=== PATIENT | female | born 1950 | race African-American/Black ===

== ENCOUNTER → 2017-04-24 | Outpatient (CLI) | payer MEDICARE, OTHER ==
--- NOTE | 2017-04-24 10:03 | US ---
EXAMINATION TYPE: US kidneys/renal and bladder DATE OF EXAM: 04/24/2017 COMPARISON: NONE CLINICAL HISTORY: 67-year-old female N18.9 chronic kidney disease. TECHNIQUE: Multiple sonographic images of the kidneys and bladder were obtained. FINDINGS: EXAM MEASUREMENTS: Right Kidney: 9.3 x 3.9 x 4.6 cm without hydronephrosis. Left Kidney: 9.7 x 3.6 x 4.4 cm without hydronephrosis. There is a 2.4 cm cyst in the upper pole that may have slightly eccentrically thickened wall and can be reassessed in 6 months. Partial distention of the bladder limits its evaluation. IMPRESSION: 1. No hydronephrosis. 2. A 2.4 cm lesion upper pole left kidney. A Bosniak class IIF cyst is not excluded at this time. Six -month follow-up ultrasound recommended.
== END | disposition home or self-care (01) ==
LOC: RADUSWWP 08:23
PROVIDERS: ATTEND Family Medicine
DX: N18.9 Chronic kidney disease, unspecified (principal)
CPT/HCPCS: 76770

== ENCOUNTER 2017-04-26 17:11 | Emergency (ER) | payer MEDICARE, OTHER ==
[2017-04-26 17:19] VITALS: BP 106/76; PULSE 85; RESP 18; TEMP 99.5
[2017-04-26] MEDS ORDERED: HYDROcodone/APAP 5-325MG 1 EACH TAB PO STA (17:28)
--- NOTE | 2017-04-26 17:34 | ED ---
General Adult HPI - General Chief complaint: Extremity Injury, Lower Stated complaint: left foot ankle pain Time Seen by Provider: 04/26/17 17:21 Source: patient, RN notes reviewed Mode of arrival: wheelchair Limitations: no limitations - History of Present Illness Initial comments: Patient 67-year-old female who presents emergency room today with chief complaint of increased pain to the left foot over the last 3 days. Denies any significant injury or trauma. Does admit that it started slowly began to get worse. She states worse with ambulation. States is worse when she dorsiflexes the left foot she feels pain in the midfoot area. Patient denies any other complaints or associated symptoms. States she did not take and moving for pain. Patient denies any recent fever, chills, shortness of breath, chest pain, back pain, abdominal pain, nausea or vomiting, numbness or tingling, dysuria or hematuria, constipation or diarrhea, headaches or visual changes, or any other complaints. - Related Data Home Medications Medication Instructions Recorded Confirmed Beclomethasone Dipropionate [Qvar 2 puff INHALATION BID 09/02/15 09/02/15 80 mcg/puff] Previous Rx's Medication Instructions Recorded Carvedilol [Coreg] 6.25 mg PO BID-W/MEALS #180 tab 01/04/15 Furosemide [Lasix] 40 mg PO DAILY #90 tab 01/04/15 Lisinopril [Zestril] 5 mg PO DAILY #90 tab 07/19/15 Spironolactone [Aldactone] 25 mg PO DAILY #90 tab 07/19/15 Furosemide [Lasix] 20 mg PO DAILY #20 tab 09/02/15 Allergies Allergy/AdvReac Type Severity Reaction Status Date / Time latex Allergy Dyspnea Verified 04/26/17 17:19 Penicillins Allergy Rash/Hives Verified 04/26/17 17:19 aspirin AdvReac Unknown Verified 04/26/17 17:19 salt AdvReac Swelling Uncoded 04/26/17 17:19 Review of Systems ROS Statement: Those systems with pertinent positive or pertinent negative responses have been documented in the HPI. ROS Other: All systems not noted in ROS Statement are negative. Past Medical History Past Medical History: Blood Disorder, Hypertension, Osteoarthritis (OA), Pneumonia, Renal Disease Additional Past Medical History / Comment(s): enlarged heart, sickle cell anemia. CHF,cardiomyopathy,pulmonary htn,Hepatitis History of Any Multi-Drug Resistant Organisms: None Reported Past Surgical History: No Surgical Hx Reported Past Anesthesia/Blood Transfusion Reactions: No Reported Reaction Past Psychological History: No Psychological Hx Reported Smoking Status: Former smoker Past Alcohol Use History: None Reported Past Drug Use History: None Reported - Past Family History Mother Family Medical History: Congestive Heart Failure (CHF) Father Family Medical History: No Reported History General Exam - General Exam Comments Initial Comments: General: The patient is awake and alert, in no distress, and does not appear acutely ill. Neck: The neck is supple, there is no tenderness or JVD. Cardiovascular: There is a regular rate and rhythm. No murmur, rub or gallop is appreciated. Respiratory: Lungs are clear to auscultation, respirations are non-labored, breath sounds are equal. No wheezes, stridor, rales, or rhonchi. Musculoskeletal: Normal appearance of the left foot no obvious foreign. Shows good range of motion with both plantar dorsiflexion. Mild tenderness over the proximal metatarsals. Sensation intact with pulses equal bilaterally 2+. Neurological: A&O x 3. CN II-XII intact, There are no obvious motor or sensory deficits. Coordination appears grossly intact. Speech is normal. Skin: Skin is warm and dry and no rashes or lesions are noted. Psychiatric: Normal mood and affect. Limitations: no limitations Course Vital Signs 04/26/17 17:16 Temperature 99.5 F Pulse Rate 85 Respiratory 18 Rate Blood Pressure 106/76 O2 Sat by Pulse 98 Oximetry Medical Decision Making - Medical Decision Making Negative for any acute abnormalities. Results were discussed with the patient. Patient is advised to use Tylenol [id number] for these symptoms. Advised follow-up the family doctor symptoms persist over the next 2 days. Advised return for any other concerns. Disposition Clinical Impression: Foot pain, left Disposition: HOME SELF-CARE Condition: Good Instructions: Foot Sprain (ED) Additional Instructions: Please continue to ice elevate the affected area as discussed and use Tylenol for pain. Please follow-up family doctor if there is no improvement over the next 2-5 days. Please return to emergency room for any other concerns. Referrals: Montez Griffith MD [Primary Care Provider] - 1-2 days Time of Disposition: 18:01
--- NOTE | 2017-04-26 17:48 | XR ---
EXAMINATION TYPE: XR foot complete LT DATE OF EXAM: 04/26/2017 COMPARISON: NONE HISTORY: Foot pain TECHNIQUE: 3 views FINDINGS: There is mild hallux valgus. There is narrowing and spurring at the first MP joint. Metatar sals are intact. IMPRESSION: Hallux valgus. No fracture seen. No sign of inflammatory arthritis.
== END 2017-04-26 18:12 | disposition home or self-care (01) ==
LOC: EC 17:11
DX: M79.672 Pain in left foot (principal); Z88.0 Allergy status to penicillin; Z88.6 Allergy status to analgesic agent; Z91.040 Latex allergy status; Z91.048 Other nonmedicinal substance allergy status; Z79.51 Long term (current) use of inhaled steroids; Z87.891 Personal history of nicotine dependence
CPT/HCPCS: 99283

== ENCOUNTER → 2017-08-21 | Outpatient (CLI) | payer MEDICARE, OTHER ==
[2017-08-21 11:14] LABS: Basophils % (A) 0 %; CH 27.7; CHCM 31.9; Eosinophils # (A) 0.2 k/uL (0-0.7); Eosinophils % (A) 2 %; HDW 2.08; HGB 13.5 gm/dL (11.4-16.0); Luc # (Auto) 0.11; Luc % (Auto) 2; Lymphocytes % (A) 29 %; MCH 26.9 pg (25.0-35.0); MCHC 30.8 g/dL (31.0-37.0); MCV 87.3 fL (80.0-100.0); Mean Platelet Volume 7.4; Monocytes # (A) 0.3 k/uL (0-1.0); Monocytes % (A) 5 %; Neutrophils # (A) 4.4 k/uL (1.3-7.7); Neutrophils % (A) 63 %; RBC 5.04 m/uL (3.80-5.40); RDW 12.8 % (11.5-15.5); WBC (Perox) 6.73
[2017-08-21 11:23] LABS: Bilirubin, Delta 0.3 mg/dL (0.0-0.2); Total Bilirubin 0.8 mg/dL (0.2-1.3); Total Protein 8.4 g/dL (6.3-8.2)
[2017-08-24 14:56] LABS: LOG HCV IU/mL 5.99 (<1.08)
== END | disposition home or self-care (01) ==
LOC: LABWHC1 10:27
PROVIDERS: ATTEND Physician Assistant
DX: B18.2 Chronic viral hepatitis C (principal)
CPT/HCPCS: 36415; 80076; 82105; 85025; 87522

== ENCOUNTER → 2017-09-04 | Outpatient (CLI) | payer MEDICARE, OTHER ==
--- NOTE | 2017-09-04 12:31 | MR ---
EXAMINATION TYPE: MR liver wo con DATE OF EXAM: 09/04/2017 COMPARISON: NONE HISTORY: Chronic Hepatitis C Standard multiplanar, multisequence MRI departmental protocol Multiplanar, multisequence images of the abdomen were acquired. Diffusion weighted imaging was perfor med. FINDINGS: There is no signal dropout seen within the hepatic parenchyma on out of phase imaging in comparison t o in phase imaging to indicate hepatic steatosis. Punctate 2 mm hepatic cyst is seen on series 201 im age 13 of coronal T2 nonfat sat imaging. Additional 3 mm left hepatic lobe cyst is seen on T2 fat sat series 501 image 20. No other focal T1 hypointense or focal T2 hyperintense masslike signal abnormal ity is seen within the hepatic parenchyma to suggest underlying mass. There is a mild nodular contour of the hepatic parenchyma without hepatic atrophy. The portal vein do es not appear enlarged. Flow-voids are seen throughout all of the venous structures and evaluation fo r portal vein thrombosis cannot be performed on this examination without contrast. T2 hyperintense benign appearing splenic lesion measures 5 x 6 mm. The spleen is nonenlarged measurin g 9.7 cm in craniocaudal dimension Adrenal glands appear symmetric and unremarkable. Large T2 hyperin tense and T1 hypointense left pararenal cyst measures 2.8 x 2.8 cm extending into the renal sinus. Po sterior to this there is a T1 hyperintense and T2 fat sat hypointense as well as T2 nonfat sat likely hypointense proteinaceous or hemorrhagic cyst measuring 5 mm although technically this is too small to accurately characterize. There is partial visualization of four-chamber cardiomegaly. Gallbladder is unremarkable. Common bile duct is nondilated. Bone marrow signal is unremarkable. IMPRESSION: 1. No evidence of suspicious T1/T2 masslike hepatic signal abnormality to suggest hepatoma although e valuation for arterial enhancing lesions is limited without contrast. Hepatic contour is mildly nodul ar compatible with underlying hepatocellular disease. No current evidence of portal venous hypertensi on. 2. Too small to accurately characterize renal lesion, possibly proteinaceous or hemorrhagic cyst vers us less likely renal mass. Surveillance is recommended. 3. Benign left pararenal sinus cyst. 3. Subcentimeter punctate hepatic cysts.
== END | disposition home or self-care (01) ==
LOC: RADMRIMAIN 09:35
PROVIDERS: ATTEND Physician Assistant
DX: K76.89 Other specified diseases of liver (principal); B18.2 Chronic viral hepatitis C
CPT/HCPCS: 36415; 74181; 82565; 84520

== ENCOUNTER 2017-09-11 17:31 | Emergency (ER) | payer MEDICARE, OTHER ==
[2017-09-11] MEDS ORDERED: SODIUM CHLORIDE 0.9% 1,000 ML IV STA ×2 (18:06→18:07)
[2017-09-11] MEDS ORDERED: ONDANSETRON 4 MG/2 ML VIAL IVP STA (18:06)
[2017-09-11] MEDS ORDERED: FAMOTIDINE 20 MG/2 ML VIAL IV STA (18:07)
[2017-09-11] MEDS ORDERED: ACETAMINOPHEN TAB 500 MG TAB PO STA (18:07)
--- NOTE | 2017-09-11 18:17 | ED ---
General Adult HPI - General Chief complaint: Abdominal Pain Stated complaint: NVD, Poss Dehydrated Time Seen by Provider: 09/11/17 17:59 Source: patient, EMS, RN notes reviewed Mode of arrival: EMS Limitations: no limitations - History of Present Illness Initial comments: 67-year-old female presents to the emergency department with a chief complaint of nausea and diarrhea. Patient has had this for the last day or so. Patient states she is having watery diarrhea and lots of nausea. Patient denies any abdominal pain. Patient denies any fever or chills. Patient states that she has felt kind of clammy and lightheaded with this from time to time. Patient was concerned due to the fact she continued to have this nausea with the diarrhea and she feels that she is somewhat weak so she thought that she should be seen. Patient denies any fever or chills. Patient states that she is not currently having any other symptoms at this time. Patient denies any recent fever, chills, shortness of breath, chest pain, back pain, abdominal pain, vomiting, numbness or tingling, dysuria or hematuria, constipation, headaches or visual changes, or any other current symptoms. - Related Data Home Medications Medication Instructions Recorded Confirmed Acetaminophen Tab [Tylenol] 1 - 2 tab PO TID PRN 09/11/17 09/11/17 Aspirin [Adult Low Dose Aspirin EC] 81 mg PO DAILY 09/11/17 09/11/17 Clopidogrel [Plavix] 75 mg PO DAILY 09/11/17 09/11/17 Losartan [Cozaar] 25 mg PO DAILY 09/11/17 09/11/17 Previous Rx's Medication Instructions Recorded Carvedilol [Coreg] 6.25 mg PO BID-W/MEALS #180 tab 01/04/15 Furosemide [Lasix] 40 mg PO DAILY #90 tab 01/04/15 Spironolactone [Aldactone] 25 mg PO DAILY #90 tab 07/19/15 Ondansetron Odt [Zofran ODT] 4 mg PO Q8HR PRN #20 tab 09/11/17 Allergies Allergy/AdvReac Type Severity Reaction Status Date / Time latex Allergy Dyspnea Verified 09/11/17 19:14 Penicillins Allergy Rash/Hives Verified 09/11/17 19:14 salt AdvReac Swelling Uncoded 09/11/17 18:04 Review of Systems ROS Statement: Those systems with pertinent positive or pertinent negative responses have been documented in the HPI. ROS Other: All systems not noted in ROS Statement are negative. Past Medical History Past Medical History: Blood Disorder, Heart Failure, Hypertension, Osteoarthritis (OA), Pneumonia, Renal Disease Additional Past Medical History / Comment(s): enlarged heart, sickle cell anemia. CHF,cardiomyopathy,pulmonary htn,Hepatitis C History of Any Multi-Drug Resistant Organisms: None Reported Past Surgical History: No Surgical Hx Reported Past Anesthesia/Blood Transfusion Reactions: No Reported Reaction Past Psychological History: No Psychological Hx Reported Smoking Status: Former smoker Past Alcohol Use History: None Reported Past Drug Use History: None Reported - Past Family History Mother Family Medical History: Congestive Heart Failure (CHF) Father Family Medical History: No Reported History General Exam - General Exam Comments Initial Comments: General: The patient is awake and alert, in no distress, and does not appear acutely ill. Eye: Pupils are equal, round and reactive to light. Ears, nose, mouth and throat: There are moist mucous membranes. Neck: The neck is supple, there is no tenderness. Cardiovascular: There is a regular rate and rhythm. No murmur, rub or gallop is appreciated. Respiratory: Lungs are clear to auscultation, respirations are non-labored, breath sounds are equal. No wheezes, stridor, rales, or rhonchi. Gastrointestinal: Soft, non-distended, non-tender abdomen without masses or organomegaly noted. There is no rebound or guarding present. No CVA tenderness. Bowel sounds are unremarkable. Back: There is no tenderness to palpation in the midline. There is no obvious deformity. No rashes noted. Musculoskeletal: Normal ROM, no tenderness, There is no pedal edema. There is no calf tenderness or swelling. Sensation intact. Pulses equal bilaterally 2+. Neurological: CN II-XII intact, There are no obvious motor or sensory deficits. Coordination appears grossly intact. Speech is normal. Skin: Skin is warm and dry and no rashes or lesions are noted. Psychiatric: Cooperative, appropriate mood & affect, normal judgment. Limitations: no limitations Course Vital Signs 09/11/17 09/11/17 09/11/17 18:02 18:29 19:37 Temperature 100.1 F H 98.2 F Pulse Rate 83 82 75 Pulse Rate [ Sitting] Pulse Rate [ Standing] Pulse Rate [ Supine] Respiratory 18 16 16 Rate Blood Pressure 131/92 121/84 102/68 Blood Pressure [Sitting] Blood Pressure [Standing] Blood Pressure [Supine] O2 Sat by Pulse 100 95 Oximetry 09/11/17 09/11/17 21:14 21:17 Temperature Pulse Rate Pulse Rate [ 65 Sitting] Pulse Rate [ 67 Standing] Pulse Rate [ 63 Supine] Respiratory Rate Blood Pressure Blood Pressure 136/72 [Sitting] Blood Pressure 132/78 [Standing] Blood Pressure 145/63 [Supine] O2 Sat by Pulse Oximetry Medical Decision Making - Medical Decision Making 67-year-old female presents emergency department with chief complaint of nausea and diarrhea. At this time the patient's lab work is been reviewed. She is an elevated cardiac however this does appear to be along her normal baseline. At this time we did give her adequate hydration. We discussed possible etiologies for symptoms. We discussed return parameters and follow-up and all questions. Patient family stated the [facility] management this plan. All cushions have been answered. They will be discharged. - Lab Data Result diagrams: 09/11/17 18:25 09/11/17 18:25 Lab Results 09/11/17 09/11/17 09/11/17 Range/Units 18:25 18:25 20:45 WBC 8.0 (3.8-10.6) k/uL RBC 5.22 (3.80-5.40) m/uL Hgb 14.2 (11.4-16.0) gm/dL Hct 43.6 (34.0-46.0) % MCV 83.6 (80.0-100.0) fL MCH 27.2 (25.0-35.0) pg MCHC 32.5 (31.0-37.0) g/dL RDW 14.6 (11.5-15.5) % Plt Count 162 (150-450) k/uL Neutrophils % 74 % Lymphocytes % 17 % Monocytes % 6 % Eosinophils % 1 % Basophils % 0 % Neutrophils # 5.9 (1.3-7.7) k/uL Lymphocytes # 1.3 (1.0-4.8) k/uL Monocytes # 0.5 (0-1.0) k/uL Eosinophils # 0.1 (0-0.7) k/uL Basophils # 0.0 (0-0.2) k/uL Sodium 137 (137-145) mmol/L Potassium 5.6 H (3.5-5.1) mmol/L Chloride 104 (98-107) mmol/L Carbon Dioxide 22 (22-30) mmol/L Anion Gap 11 mmol/L BUN 25 H (7-17) mg/dL Creatinine 2.12 H (0.52-1.04) mg/dL Est GFR (MDRD) Af Amer 28 (>60 ml/min/1.73 sqM) Est GFR (MDRD) Non-Af 23 (>60 ml/min/1.73 sqM) Glucose 121 H (74-99) mg/dL Calcium 10.1 (8.4-10.2) mg/dL Total Bilirubin 1.7 H (0.2-1.3) mg/dL AST 36 (14-36) U/L ALT 28 (9-52) U/L Alkaline Phosphatase 82 (38-126) U/L Total Protein 8.4 H (6.3-8.2) g/dL Albumin 4.4 (3.5-5.0) g/dL Amylase 126 H (30-110) U/L Lipase 93 (23-300) U/L Urine Color Light Yellow Urine Appearance Cloudy H (Clear) Urine pH 5.0 (5.0-8.0) Ur Specific [place] 1.005 (1.001-1.035) Urine Protein Trace H (Negative) Urine Glucose (UA) Negative (Negative) Urine Ketones Negative (Negative) Urine Blood Negative (Negative) Urine Nitrite Negative (Negative) Urine Bilirubin Negative (Negative) Urine Urobilinogen <2.0 (<2.0) mg/dL Ur Leukocyte Esterase Large H (Negative) Urine RBC 3 (0-5) /hpf Urine WBC 21 H (0-5) /hpf Ur Squamous Epith Cells 2 (0-4) /hpf Urine Bacteria Moderate H (None) /hpf Hyaline Casts 6 H (0-2) /lpf Urine Mucus Rare H (None) /hpf - Radiology Data Radiology results: report reviewed, image reviewed Disposition Clinical Impression: Nausea & vomiting, Dehydration, Hyperkalemia Disposition: HOME SELF-CARE Condition: Stable Instructions: Dehydration (ED), Acute Diarrhea (ED) Additional Instructions: Please use medication as discussed. Please follow up with family doctor if symptoms have not improved over the next two days. Please return to the emergency room if your symptoms increase or worsen or for any other concerns. Please follow up for repeat lab work in one to 2 days. Prescriptions: Ondansetron Odt [Zofran ODT] 4 mg PO Q8HR PRN #20 tab PRN Reason: Nausea Referrals: Montez Griffith MD [Primary Care Provider] - 1-2 days Time of Disposition: 21:43
[2017-09-11 18:47] LABS: Basophils % (A) 0 %; CH 27.4; CHCM 32.9; Eosinophils # (A) 0.1 k/uL (0-0.7); Eosinophils % (A) 1 %; HCT 43.6 % (34.0-46.0); HDW 2.03; HGB 14.2 gm/dL (11.4-16.0); Luc # (Auto) 0.11; Luc % (Auto) 1; Lymphocytes # (A) 1.3 k/uL (1.0-4.8); Lymphocytes % (A) 17 %; MCH 27.2 pg (25.0-35.0); MCHC 32.5 g/dL (31.0-37.0); MCV 83.6 fL (80.0-100.0); Mean Platelet Volume 8.2; Monocytes # (A) 0.5 k/uL (0-1.0); Monocytes % (A) 6 %; Neutrophils # (A) 5.9 k/uL (1.3-7.7); Neutrophils % (A) 74 %; RBC 5.22 m/uL (3.80-5.40); RDW 14.6 % (11.5-15.5); WBC (Perox) 7.97
[2017-09-11 19:04] LABS: Calcium 10.1 mg/dL (8.4-10.2); Potassium 5.6 mmol/L (3.5-5.1); Total Bilirubin 1.7 mg/dL (0.2-1.3); Total Protein 8.4 g/dL (6.3-8.2)
--- NOTE | 2017-09-11 19:20 | XR ---
EXAMINATION TYPE: XR abdomen 2V DATE OF EXAM: 09/11/2017 COMPARISON: NONE HISTORY: Weakness and pain TECHNIQUE: 3 views FINDINGS: Bowel gas pattern is normal. There is no sign of intestinal obstruction or pneumoperitoneum . There are dense calcified uterine fibroids. There are no pathologic calcifications over the kidneys . There is no evidence of pleural effusion. IMPRESSION: Nonacute abdomen.
[2017-09-11 20:56] LABS: Appearance,Urine Cloudy (Clear); Bacteria,Urine Moderate /hpf; Bilirubin,Urine Negative (Negative); Glucose,Urine (UA) Negative (Negative); Ketones,Urine Negative (Negative); Leukocyte Esterase,Urine Large (Negative); Mucus,Urine Rare /hpf; Nitrite,Urine Negative (Negative); Particle Count 19924; Protein,Urine Trace (Negative); RBC,Urine 3 /hpf (0-5); Specific Gravity,Urine 1.005 (1.001-1.035); Squamous Epithelial Cell,Urine 2 /hpf (0-4); UA Billing (MACRO vs. MICRO) MICRO; Urobilinogen,Urine <2.0 mg/dL (<2.0); WBC,Urine 21 /hpf (0-5)
[2017-09-11 21:57] VITALS: BP 117/72; PULSE 59; RESP 14; TEMP 98.1
== END 2017-09-11 22:01 | disposition home or self-care (01) ==
LOC: EC 17:31
DX: E86.0 Dehydration (principal); E87.5 Hyperkalemia; M19.90 Unspecified osteoarthritis, unspecified site; I11.0 Hypertensive heart disease with heart failure; I50.9 Heart failure, unspecified; Z87.891 Personal history of nicotine dependence; Z88.0 Allergy status to penicillin; Z91.040 Latex allergy status; Z91.018 Allergy to other foods; Z79.82 Long term (current) use of aspirin; Z79.02 Long term (current) use of antithrombotics/antiplatelets; Z79.899 Other long term (current) drug therapy
CPT/HCPCS: 36415; 80053; 82150; 83690; 85025; 81001; 74020; 99284; 96374; 96375; 96361 ×3; J2405

== ENCOUNTER → 2017-12-14 | Outpatient (CLI) | payer MEDICARE, OTHER ==
[2017-12-14 12:13] LABS: Albumin 4.2 g/dL (3.5-5.0); Bilirubin, Delta 1.4 mg/dL (0.0-0.2); Bilirubin,Unconjugated 1.4 mg/dL (0.0-1.1); Total Bilirubin 2.8 mg/dL (0.2-1.3); Total Protein 7.8 g/dL (6.3-8.2)
[2017-12-14 12:29] LABS: Basophils % (A) 0 %; Eosinophils # (A) 0.2 k/uL (0-0.7); Eosinophils % (A) 3 %; HCT 33.7 % (34.0-46.0); HGB 11.3 gm/dL (11.4-16.0); Lymphocytes # (A) 1.9 k/uL (1.0-4.8); Lymphocytes % (A) 26 %; MCH 27.8 pg (25.0-35.0); MCHC 33.4 g/dL (31.0-37.0); MCV 83.2 fL (80.0-100.0); Mean Platelet Volume 7.9; Monocytes # (A) 0.4 k/uL (0-1.0); Monocytes % (A) 5 %; Neutrophils # (A) 4.8 k/uL (1.3-7.7); Neutrophils % (A) 65 %; Platelet Count 187 k/uL (150-450); RBC 4.05 m/uL (3.80-5.40); RDW 13.6 % (11.5-15.5); WBC 7.4 k/uL (3.8-10.6)
[2017-12-16 15:43] LABS: Hepatits C Virus RNA DETECTED (Not detected); Hepatits C Virus RNA, Quant <12 IU/mL (<12); LOG HCV IU/mL <1.08 (<1.08)
== END | disposition home or self-care (01) ==
LOC: LABWHC1 10:56
PROVIDERS: ATTEND Physician Assistant
DX: B18.2 Chronic viral hepatitis C (principal)
CPT/HCPCS: 36415; 80076; 85025; 87522

== ENCOUNTER → 2018-01-21 | Outpatient (CLI) | payer MEDICARE, OTHER ==
[2018-01-21 11:47] LABS: Albumin 4.1 g/dL (3.5-5.0); Bilirubin, Delta 0.7 mg/dL (0.0-0.2); Bilirubin,Unconjugated 1.1 mg/dL (0.0-1.1); Total Bilirubin 1.8 mg/dL (0.2-1.3); Total Protein 7.6 g/dL (6.3-8.2)
[2018-01-21 11:53] LABS: Basophils % (A) 0 %; Eosinophils # (A) 0.2 k/uL (0-0.7); Eosinophils % (A) 2 %; HCT 36.5 % (34.0-46.0); HGB 12.5 gm/dL (11.4-16.0); Lymphocytes # (A) 2.1 k/uL (1.0-4.8); Lymphocytes % (A) 28 %; MCH 28.4 pg (25.0-35.0); MCHC 34.2 g/dL (31.0-37.0); MCV 83.1 fL (80.0-100.0); Mean Platelet Volume 7.4; Monocytes # (A) 0.4 k/uL (0-1.0); Monocytes % (A) 6 %; Neutrophils # (A) 4.7 k/uL (1.3-7.7); Neutrophils % (A) 61 %; Platelet Count 197 k/uL (150-450); RDW 14.4 % (11.5-15.5); WBC 7.7 k/uL (3.8-10.6)
== END | disposition home or self-care (01) ==
LOC: LABWHC1 10:41
PROVIDERS: ATTEND Physician Assistant
DX: B18.2 Chronic viral hepatitis C (principal)
CPT/HCPCS: 36415; 80076; 85025; 87522

== ENCOUNTER → 2018-01-21 | Outpatient (CLI) | payer MEDICARE, OTHER ==
--- NOTE | 2018-01-21 14:27 | US ---
EXAMINATION TYPE: US kidneys/renal and bladder DATE OF EXAM: 01/21/2018 COMPARISON: Renal ultrasound April 24, 2017. CLINICAL HISTORY: lesion of left kidney N28.9. EXAM MEASUREMENTS: Right Kidney: 8.6 x 3.8 x 4.5 cm Left Kidney: 9.7 x 3.5 x 4.3 cm Right Kidney: No hydronephrosis or masses seen Left Kidney: upper pole cyst measures 2.8 x 2.1 x 3.0 cm Bladder: not well distended Bilateral Jets seen: Yes There is no evidence for hydronephrosis at this point in time. Increased cortical echogenicity is not ed bilaterally. There is persistent cystic lesion upper pole level that has thin septa with slight l obulated but fairly well-defined margin and increased through transmission. Lesion measures up to 3.0 cm on long axis on current study. No new solid or cystic masses are identified. The urinary bladder is somewhat poorly distended. Bilateral ureteral jets are seen. IMPRESSION: Redemonstration of cystic lesion left kidney measuring slightly larger at 3.0 cm with some thin perip heral septa. Advise continued imaging surveillance in 6-12 months time.
== END | disposition home or self-care (01) ==
LOC: RADUSWWP 10:04
PROVIDERS: ATTEND Family Medicine
DX: N28.1 Cyst of kidney, acquired (principal); Z88.0 Allergy status to penicillin
CPT/HCPCS: 76770

== ENCOUNTER → 2018-08-17 | Outpatient (CLI) | payer MEDICARE, OTHER ==
--- NOTE | 2018-08-17 09:11 | CT ---
EXAMINATION TYPE: CT chest wo con DATE OF EXAM: 08/17/2018 COMPARISON: Chest x-ray September 02, 2015 HISTORY: CHF and cardiomegaly, swollen right arm and hand CT DLP: 143.9 mGycm. Automated Exposure Control for Dose Reduction was Utilized. TECHNIQUE: CT scan of the thorax is performed without IV contrast. FINDINGS: LUNGS: There is small right pleural effusion. There is tiny left pleural effusion. There is right hil ar linear scarring and/or atelectasis. There is left hilar atelectasis and/or Limited infiltrate. No pneumothorax is seen bilaterally. MEDIASTINUM: Lack of IV contrast is noted to limit evaluation for mediastinal and especially hilar ad enopathy. There are no definitive greater than 1 cm hilar or mediastinal lymph nodes. Massive cardiom egaly is present. There is severe right atrial dilatation. There is calcification in the left ventric ular apex axial image 48 . Consider product of old myocardial infarction. Correlate clinically. There is small surrounding pericardial effusion with pericardial recess fluid noted extending into mediast inum. OTHER: There is severe diffuse soft tissue anasarca. There is partial visualization of at least moder ate abdominal ascites IMPRESSION: There is massive cardiomegaly with severe left atrial dilatation. There are small to tiny right greater than left bilateral pleural effusions. Correlate for CHF exacerbation. Severe diffuse soft tissue anasarca and at least moderate abdominal ascites raises concern for additional underlying process. Clinical correlation advised.
== END | disposition home or self-care (01) ==
LOC: RADCTMAIN 08:33
PROVIDERS: ATTEND Family Medicine
DX: I51.7 Cardiomegaly (principal); R18.8 Other ascites; Z88.0 Allergy status to penicillin
CPT/HCPCS: 71250

== ENCOUNTER → 2018-08-17 | Outpatient (CLI) | payer MEDICARE, OTHER ==
[2018-08-17 10:01] LABS: INR 1.5 (<1.2)
[2018-08-17 10:24] LABS: Anisocytosis Slight; Basophils % (A) 0 %; Eosinophils # (A) 0.1 k/uL (0-0.7); Eosinophils % (A) 2 %; HCT 40.9 % (34.0-46.0); HGB 13.1 gm/dL (11.4-16.0); Hypochromasia Slight; Lymphocytes # (A) 0.9 k/uL (1.0-4.8); Lymphocytes % (A) 20 %; MCHC 31.9 g/dL (31.0-37.0); MCV 87.7 fL (80.0-100.0); Mean Platelet Volume 7.6; Monocytes # (A) 0.2 k/uL (0-1.0); Monocytes % (A) 5 %; Neutrophils # (A) 3.2 k/uL (1.3-7.7); Neutrophils % (A) 72 %; Platelet Count 120 k/uL (150-450); RBC 4.66 m/uL (3.80-5.40); RDW 16.5 % (11.5-15.5); WBC 4.4 k/uL (3.8-10.6)
[2018-08-17 18:14] LABS: Albumin 3.8 g/dL (3.80-4.90); Albumin/Globulin Ratio 1.58 (1.20-2.10); Globulin 2.4 g/dL (2.1-3.7); Total Protein 6.2 g/dL (6.2-8.2)
[2018-08-18 14:59] LABS: Hepatits C Virus RNA Not detected (Not detected); Hepatits C Virus RNA, Quant <12 IU/mL (<12); LOG HCV IU/mL <1.08 (<1.08)
== END | disposition home or self-care (01) ==
LOC: LABWHC1 09:12
PROVIDERS: ATTEND Physician Assistant
DX: B18.2 Chronic viral hepatitis C (principal)
CPT/HCPCS: 36415; 80076; 82105; 85025; 85610; 87522

== ENCOUNTER 2018-09-17 18:37 | Inpatient (IN) | payer MEDICARE, OTHER ==
[2018-09-17] MEDS ORDERED: SODIUM CHLORIDE 0.9% 1,000 ML IV STA ×3 (18:48→20:23)
--- NOTE | 2018-09-17 18:50 | ED ---
Weakness HPI - General Stated complaint: rectal bleeding Time Seen by Provider: 09/17/18 18:41 Source: RN notes reviewed, old records reviewed - History of Present Illness Initial comments: This is a 60-year-old female the ER for evaluation. Patient resents today for evaluation regards to weakness, shortness of breath, vomiting and diarrhea with blood in her stool. Patient is not on a no blood thinners, patient takes medication at home as prescribed. Patient is currently without abdominal pain. MD Complaint: generalized weakness -: days(s) Location: generalized Severity: moderate Severity scale (1-10): 6 Consistency: constant Improves with: none Worsens with: none Associated Symptoms: dark stools, nausea/vomiting, shortness of breath - Related Data Home Medications Medication Instructions Recorded Confirmed Aspirin [Adult Low Dose Aspirin EC] 81 mg PO DAILY 09/11/17 09/17/18 Clopidogrel [Plavix] 75 mg PO DAILY 09/11/17 09/17/18 Losartan [Cozaar] 25 mg PO DAILY 09/11/17 09/17/18 Carvedilol [Coreg] 3.125 mg PO BID 09/17/18 09/17/18 Furosemide [Lasix] 80 mg PO DAILY 09/17/18 09/17/18 Previous Rx's Medication Instructions Recorded Spironolactone [Aldactone] 25 mg PO DAILY #90 tab 07/19/15 Allergies Allergy/AdvReac Type Severity Reaction Status Date / Time latex Allergy Dyspnea Verified 09/17/18 19:25 Penicillins Allergy Rash/Hives Verified 09/17/18 19:25 salt AdvReac Swelling Uncoded 09/17/18 18:55 Review of Systems ROS Statement: Those systems with pertinent positive or pertinent negative responses have been documented in the HPI. ROS Other: All systems not noted in ROS Statement are negative. Past Medical History Past Medical History: Blood Disorder, Heart Failure, Hypertension, Osteoarthritis (OA), Pneumonia, Renal Disease Additional Past Medical History / Comment(s): enlarged heart, sickle cell anemia. CHF,cardiomyopathy,pulmonary htn,Hepatitis C History of Any Multi-Drug Resistant Organisms: None Reported Past Surgical History: No Surgical Hx Reported Past Anesthesia/Blood Transfusion Reactions: No Reported Reaction Past Psychological History: No Psychological Hx Reported Smoking Status: Former smoker Past Alcohol Use History: None Reported Past Drug Use History: None Reported - Past Family History Mother Family Medical History: Congestive Heart Failure (CHF) Father Family Medical History: No Reported History General Exam General appearance: alert, in no apparent distress Head exam: Present: atraumatic, normocephalic, normal inspection Eye exam: Present: normal appearance, PERRL, EOMI. Absent: scleral icterus, conjunctival injection, periorbital swelling ENT exam: Present: normal exam, mucous membranes moist Neck exam: Present: normal inspection. Absent: tenderness, meningismus, lymphadenopathy Respiratory exam: Present: normal lung sounds bilaterally. Absent: respiratory distress, wheezes, rales, rhonchi, stridor Cardiovascular Exam: Present: normal rhythm, tachycardia, normal heart sounds. Absent: systolic murmur, diastolic murmur, rubs, gallop, clicks GI/Abdominal exam: Present: soft, normal bowel sounds. Absent: distended, tenderness, guarding, rebound, rigid Extremities exam: Present: normal inspection, full ROM, normal capillary refill. Absent: tenderness, pedal edema, joint swelling, calf tenderness Back exam: Present: normal inspection Neurological exam: Present: alert, oriented X3, CN II-XII intact Psychiatric exam: Present: normal affect, normal mood Skin exam: Present: warm, dry, intact, normal color. Absent: rash Course Vital Signs 09/17/18 09/17/18 09/17/18 18:43 18:46 19:00 Temperature 97.6 F Pulse Rate 144 H 149 H Respiratory 22 Rate Blood Pressure 116/89 116/89 O2 Sat by Pulse 93 L 17 L Oximetry 09/17/18 09/17/18 09/17/18 19:15 19:56 20:00 Temperature Pulse Rate 149 H 147 H 137 H Respiratory 16 Rate Blood Pressure 110/77 94/76 91/75 O2 Sat by Pulse 99 96 Oximetry 09/17/18 09/17/18 09/17/18 20:15 20:23 20:26 Temperature Pulse Rate 129 H 69 120 H Respiratory 16 Rate Blood Pressure 94/76 103/76 O2 Sat by Pulse Oximetry 09/17/18 20:30 Temperature Pulse Rate 67 Respiratory 16 Rate Blood Pressure 81/69 O2 Sat by Pulse Oximetry - Reevaluation(s) Reevaluation #1: 09/17/18 20:19 Medical record is reviewed Reevaluation #2: 09/17/18 20:19 Patient is feeling better with heart rate in medication and IV hydration EKG Findings - EKG Comments: EKG Findings:: EKG shows SVT rate of 150, QRS 100, QTC 502 Medical Decision Making - Medical Decision Making 68 female the ER for evaluation of weakness nausea vomiting, blood in her stool , new onset elevated heart rate. Patient will be discharged home - Lab Data Result diagrams: 09/17/18 19:10 09/17/18 19:10 Lab Results 09/17/18 09/17/18 09/17/18 Range/Units 19:10 19:10 19:10 WBC 8.2 (3.8-10.6) k/uL RBC 5.54 H (3.80-5.40) m/uL Hgb 15.1 (11.4-16.0) gm/dL Hct 47.0 H (34.0-46.0) % MCV 84.9 (80.0-100.0) fL MCH 27.3 (25.0-35.0) pg MCHC 32.2 (31.0-37.0) g/dL RDW 15.3 (11.5-15.5) % Plt Count 154 (150-450) k/uL Neutrophils % 76 % Lymphocytes % 15 % Monocytes % 6 % Eosinophils % 1 % Basophils % 0 % Neutrophils # 6.2 (1.3-7.7) k/uL Lymphocytes # 1.3 (1.0-4.8) k/uL Monocytes # 0.5 (0-1.0) k/uL Eosinophils # 0.1 (0-0.7) k/uL Basophils # 0.0 (0-0.2) k/uL Sodium 137 (137-145) mmol/L Potassium 4.8 (3.5-5.1) mmol/L Chloride 102 (98-107) mmol/L Carbon Dioxide 21 L (22-30) mmol/L Anion Gap 14 mmol/L BUN 53 H (7-17) mg/dL Creatinine 2.92 H (0.52-1.04) mg/dL Est GFR (CKD-EPI)AfAm 18 (>60 ml/min/1.73 sqM) Est GFR (CKD-EPI)NonAf 16 (>60 ml/min/1.73 sqM) Glucose 86 (74-99) mg/dL Calcium 9.3 (8.4-10.2) mg/dL Magnesium 1.8 (1.6-2.3) mg/dL Total Bilirubin 2.7 H (0.2-1.3) mg/dL AST 22 (14-36) U/L ALT 18 (9-52) U/L Alkaline Phosphatase 61 (38-126) U/L Total Creatine Kinase 83 (30-135) U/L CK-MB (CK-2) 4.6 H (0.0-2.4) ng/mL CK-MB (CK-2) Rel Index 5.5 Troponin I 0.072 H* (0.000-0.034) ng/mL Total Protein 7.0 (6.3-8.2) g/dL Albumin 3.7 (3.5-5.0) g/dL - Radiology Data Radiology results: report reviewed (Chest x-ray negative for acute disease), image reviewed Disposition Clinical Impression: Lower gastrointestinal hemorrhage, Gastrointestinal hemorrhage, Weakness, Tachycardia, ARF (acute renal failure), Atrial fibrillation with RVR Disposition: ADMITTED IP TO THIS HOSP Condition: Fair Instructions: Gastrointestinal Bleeding (ED) Is patient prescribed a controlled substance at d/c from ED?: No Referrals: Montez Griffith MD [Primary Care Provider] - 1-2 days
[2018-09-17] MEDS ORDERED: METOPROLOL TARTRATE 5 MG/5 ML VIAL IVP STA (19:04)
[2018-09-17 19:33] LABS: Basophils % (A) 0 %; Eosinophils # (A) 0.1 k/uL (0-0.7); Eosinophils % (A) 1 %; HGB 15.1 gm/dL (11.4-16.0); Lymphocytes # (A) 1.3 k/uL (1.0-4.8); Lymphocytes % (A) 15 %; MCH 27.3 pg (25.0-35.0); MCHC 32.2 g/dL (31.0-37.0); MCV 84.9 fL (80.0-100.0); Monocytes # (A) 0.5 k/uL (0-1.0); Monocytes % (A) 6 %; Neutrophils # (A) 6.2 k/uL (1.3-7.7); Neutrophils % (A) 76 %; Platelet Count 154 k/uL (150-450); RBC 5.54 m/uL (3.80-5.40); RDW 15.3 % (11.5-15.5); WBC 8.2 k/uL (3.8-10.6)
[2018-09-17 19:42] LABS: Albumin 3.7 g/dL (3.5-5.0); Calcium 9.3 mg/dL (8.4-10.2); Magnesium 1.8 mg/dL (1.6-2.3); Potassium 4.8 mmol/L (3.5-5.1); Total Bilirubin 2.7 mg/dL (0.2-1.3)
[2018-09-17 20:01] LABS: Creatine Kinase MB 4.6 ng/mL (0.0-2.4)
[2018-09-17 20:02] LABS: Troponin I 0.072 ng/mL (0.000-0.034)
--- NOTE | 2018-09-17 20:19 | XR ---
EXAMINATION TYPE: XR chest 2V DATE OF EXAM: 09/17/2018 COMPARISON: 09/02/2015 HISTORY: Weakness TECHNIQUE: Frontal and lateral views of the chest are obtained. FINDINGS: Heart is moderately enlarged. There is no gross heart failure. There is slight blunting of costophrenic angles. There is mild atelectasis in the right midlung. IMPRESSION: Severe cardiomegaly. Neural small pleural effusions compared to old exam. No overt heart failure seen however.
[2018-09-17 20:43] LABS: INR 1.8 (<1.2); Partial Thromboplastin Time 33.4 sec (22.0-30.0); Prothrombin Time 17.7 sec (9.0-12.0)
[2018-09-17 21:07] LABS: Troponin I 0.064 ng/mL (0.000-0.034)
[2018-09-17 21:47] LABS: Appearance,Urine Cloudy (Clear); Bacteria,Urine Many /hpf; Bilirubin,Urine Negative (Negative); Blood,Urine Large (Negative); Color,Urine Yellow; Glucose,Urine (UA) Negative (Negative); Hyaline Casts,Urine 23 /lpf (0-2); Ketones,Urine Negative (Negative); Leukocyte Esterase,Urine Large (Negative); Mucus,Urine Rare /hpf; Nitrite,Urine Negative (Negative); Protein,Urine Negative (Negative); RBC,Urine 4 /hpf (0-5); Specific Gravity,Urine 1.007 (1.001-1.035); Squamous Epithelial Cell,Urine 4 /hpf (0-4); Urobilinogen,Urine <2.0 mg/dL (<2.0); WBC,Urine >182 /hpf (0-5)
[2018-09-17] MEDS: SODIUM CHLORIDE 0.9% 1,000 ML IV SCH ×2 (22:59)
[2018-09-18 01:27] LABS: Creatine Kinase MB 3.9 ng/mL (0.0-2.4)
[2018-09-18 01:33] LABS: Troponin I 0.059 ng/mL (0.000-0.034)
[2018-09-18 02:05] LABS: Cholesterol 52 mg/dL (<200); LDL Cholesterol,Calculated 10 mg/dL (0-99); Triglycerides 83 mg/dL (<150)
[2018-09-18 02:08] LABS: HDL Cholesterol 25 mg/dL (40-60)
[2018-09-18] MEDS: SODIUM CHLORIDE 0.9% 1,000 ML IV SCH ×4 (04:25→17:08)
[2018-09-18 07:30] LABS: Calcium 8.8 mg/dL (8.4-10.2); Potassium 4.2 mmol/L (3.5-5.1)
[2018-09-18 07:34] LABS: Basophils % (A) 0 %; Eosinophils # (A) 0.1 k/uL (0-0.7); Eosinophils % (A) 1 %; HCT 44.2 % (34.0-46.0); HGB 13.7 gm/dL (11.4-16.0); Lymphocytes # (A) 1.2 k/uL (1.0-4.8); Lymphocytes % (A) 14 %; MCH 26.8 pg (25.0-35.0); MCV 86.7 fL (80.0-100.0); Mean Platelet Volume 7.7; Monocytes # (A) 0.4 k/uL (0-1.0); Monocytes % (A) 5 %; Neutrophils # (A) 6.4 k/uL (1.3-7.7); Neutrophils % (A) 78 %; Platelet Count 146 k/uL (150-450); RDW 15.5 % (11.5-15.5); WBC 8.2 k/uL (3.8-10.6)
[2018-09-18] MEDS ORDERED: ASPIRIN 325 MG TAB PO SCH (09:00)
--- NOTE | 2018-09-18 13:10 | CONS ---
CONSULTATION DATE OF DICTATION: 09/18/2018 REASON FOR CONSULTATION: Acute GI bleed. HISTORY OF PRESENT ILLNESS: The patient is a 68-year-old -[place] female who is a very poor historian. She has a history of chronic hepatitis C/cirrhosis of the liver and sickle cell anemia. She was admitted to the hospital with acute lower GI bleed. The patient stated that she had at least 5 or 6 episodes of bright red blood per rectum that started yesterday, but no abdominal pain, nausea or vomiting. She has been on aspirin and Plavix. Since being in the hospital she has not had any further episodes of bleeding that were witnessed by the nursing staff. This morning she says she is feeling better. She reports no abdominal pain. No nausea or vomiting. She had one brown stool this morning. She does not recall ever having bleeding like this before. She does not remember if she had a colonoscopy in the past. Her hemoglobin at the time of admission to the hospital was 15.1 and this morning it is 13.7 g/dL. PAST MEDICAL HISTORY: Significant for: 1. Hypertension. 2. Degenerative joint disease. 3. Congestive heart failure. 4. Sickle cell anemia. 5. Cardiomyopathy. 6. History of chronic hepatitis C infection. PAST SURGICAL HISTORY: She reports none. SOCIAL HISTORY: Chronic smoker. No alcohol use. FAMILY HISTORY: Mother has congestive heart failure. REVIEW OF SYSTEMS: CARDIOPULMONARY: She denies any chest pain or shortness of breath. GENITOURINARY: She denies any dysuria or hematuria. MUSCULOSKELETAL: Unremarkable. SKIN: Severe dryness of the skin on both upper extremities, and she says she sees a earth observations chief scientist. ENDOCRINE: Unremarkable. PSYCHIATRY: Unremarkable. NEUROLOGY: Unremarkable. ENT/VISION: Unremarkable. CONSTITUTIONAL: No recent weight loss. No fever, chills, night sweats. MEDICATIONS: Medications at home include: 1. Aspirin. 2. Plavix. 3. Cozaar. 4. Lasix. 5. Coreg. ALLERGIES: 1. LATEX. 2. PENICILLIN. 3. SALT. PHYSICAL EXAMINATION: She appears comfortable. No apparent distress. Vital signs are stable. Blood pressure is 120/72, pulse rate 65, temperature 97.1. HEENT EXAMINATION: Unremarkable. Conjunctivae pink, sclerae anicteric, oral cavity no lesions. NECK: No JVD or lymph node enlargement. Chest was clear to auscultation. HEART: Regular rate and rhythm. ABDOMEN: Slightly distended, but it was non-tender. No organomegaly. EXTREMITIES: No pedal edema. SKIN: Diffuse dryness and skin rash on the upper extremities. NEUROLOGICAL: Alert and oriented x3. No focal deficits. LABS: Labs at the time of admission to the hospital showed WBC 8.2, hemoglobin 15.1, platelets normal. PT 17.7, INR 1.8. Today hemoglobin is 13.7, platelets are 146. BUN is 53, creatinine 2.92. IMPRESSION: 1. Acute lower gastrointestinal bleed. Hemoglobin dropped from 15 to 13 g/dL. Patient had of bright red blood per rectum yesterday but this morning has resolved. Hemoglobin remains stable and hemodynamically stable. She does not ever recall having a colonoscopy in the past. 2. History of chronic hepatitis C/cirrhosis of the liver. She follows in our office with Iraida Hinojosa. Disease appears to be well compensated. 3. Mild elevation in troponins. RECOMMENDATION: I discussed with the patient regarding further workup of acute lower GI bleed. I recommended a colonoscopy, and patient at this time refuses to have it done. For now will follow her closely. Will repeat CBC in the morning and discuss with her again tomorrow. Thank you for this consultation. MMODL / IJN: [id number] /
[2018-09-18] MEDS ORDERED: ASPIRIN 81 MG PO SCH (13:30)
[2018-09-18] MEDS: FUROSEMIDE 80 MG TAB PO SCH (14:04)
[2018-09-18] MEDS: CARVEDILOL 3.125 MG TAB PO SCH ×2 (14:04→17:34)
[2018-09-18] MEDS: LOSARTAN 25 MG TAB PO SCH (14:04)
[2018-09-18] MEDS: SPIRONOLACTONE 25 MG TAB PO SCH (14:04)
--- NOTE | 2018-09-18 14:23 | P.CRDCN ---
History of Present Illness Consult date: 09/18/18 Reason for Consult (text): run of SVT/V. tach, cardiomegaly Chief complaint: rectal bleeding History of present illness: This is a 68-year-old -[place] female with past medical history of severe nonischemic cardiomyopathy, previous heart cath finding normal coronary arteries, moderate pulmonary hypertension, hypertension, hepatitis C. Patient gives history that she started seeing bright red rectal bleeding on Thanksgiving. This became much worse yesterday and she decided come into the hospital to have this checked. She denies having any chest pain, palpitations but does have a little shortness of breath. Hemoglobin was 15.1, INR 1.8, BUN 53 and creatinine 2.92. Lactic acid initially 2.3 and repeat 1.8, troponin 0.072, 0.064, 0.059. Urinalysis was cloudy, leukoesterase large, bacteria many. The patient had a run of what was thought to be SVT or V. tach and history of cardiomyopathy and thus this consult was requested. Patient has been seen by Dr. Kaufman for GI bleed and at this time patient does not wish to undergo colonoscopy. Patient states that her bleeding has stopped. EKG and monitor strips are showing an atrial tachycardia with aberrancy and frequent PVCs. Review of Systems All systems: negative Constitutional: Denies chills, Denies fatigue, Denies fever, Denies lethargy, Denies malaise, Denies poor appetite, Denies weight loss Eyes: denies blurred vision, denies pain Ears, nose, mouth and throat: Denies dysphagia, Denies headache, Denies sore throat Cardiovascular: Denies chest pain, Denies dyspnea on exertion, Denies edema, Denies leg edema, Denies lightheadedness, Denies shortness of breath, Denies syncope Respiratory: Reports dyspnea, Denies cough, Denies cough with sputum, Denies excessive sputum, Denies hemoptysis, Denies home oxygen, Denies wheezing Gastrointestinal: Reports melena, Denies abdominal pain, Denies diarrhea, Denies loss of appetite, Denies nausea, Denies vomiting Genitourinary: Denies dysuria, Denies hematuria Musculoskeletal: Denies myalgias Integumentary: Denies pruritus, Denies rash Neurological: Denies numbness, Denies weakness Psychiatric: Denies anxiety, Denies depression Endocrine: Denies fatigue, Denies weight change Past Medical History Past Medical History: Blood Disorder, Heart Failure, Hypertension, Osteoarthritis (OA), Pneumonia, Renal Disease, Skin Disorder Additional Past Medical History / Comment(s): enlarged heart, sickle cell anemia. CHF,cardiomyopathy,pulmonary htn,previously charted Hepatitis C, and renal disease- pt has no knowlege of this History of Any Multi-Drug Resistant Organisms: None Reported Past Surgical History: No Surgical Hx Reported Past Anesthesia/Blood Transfusion Reactions: No Reported Reaction Past Psychological History: No Psychological Hx Reported Smoking Status: Former smoker Past Alcohol Use History: Daily, Heavy Additional Past Alcohol Use History / Comment(s): patient was a smoker of up to 4 packs per day from the time she was 18 and quit around the age of 58. She also drank alcohol a fifth a day and quit approximately 10 years ago. She is currently living with her son. Past Drug Use History: None Reported - Past Family History Mother Family Medical History: Congestive Heart Failure (CHF) Father Family Medical History: No Reported History Medications and Allergies Home Medications Medication Instructions Recorded Confirmed Type Spironolactone [Aldactone] 25 mg PO DAILY #90 tab 07/19/15 09/17/18 Rx Aspirin [Adult Low Dose Aspirin EC] 81 mg PO DAILY 09/11/17 09/17/18 History Clopidogrel [Plavix] 75 mg PO DAILY 09/11/17 09/17/18 History Losartan [Cozaar] 25 mg PO DAILY 09/11/17 09/17/18 History Carvedilol [Coreg] 3.125 mg PO BID 09/17/18 09/17/18 History Furosemide [Lasix] 80 mg PO DAILY 09/17/18 09/17/18 History Allergies Allergy/AdvReac Type Severity Reaction Status Date / Time latex Allergy Dyspnea Verified 09/17/18 19:25 Penicillins Allergy Rash/Hives Verified 09/17/18 19:25 Physical Exam Vitals: Vital Signs Temp Pulse Pulse Resp BP BP Pulse Ox 09/18/18 12:00 60 14 99/56 98 09/18/18 09:17 96 09/18/18 08:00 97.3 F L 50 L 16 106/75 96 09/18/18 04:00 97.1 F L 65 17 120/72 97 09/18/18 00:00 97.7 F 65 18 126/69 95 09/17/18 22:09 76 16 114/74 97 09/17/18 21:01 79 16 115/67 09/17/18 20:40 61 16 101/65 09/17/18 20:30 110 H 16 103/76 09/17/18 20:26 120 H 16 103/76 09/17/18 20:23 69 09/17/18 20:15 129 H 94/76 09/17/18 20:00 137 H 91/75 09/17/18 19:56 147 H 16 94/76 96 09/17/18 19:15 149 H 110/77 99 09/17/18 19:00 149 H 116/89 09/17/18 18:46 17 L 09/17/18 18:43 97.6 F 144 H 22 116/89 93 L Intake and Output 09/17/18 09/18/18 09/18/18 22:59 06:59 14:59 Intake Total 1300 582 Output Total 0 901 Balance 0 399 582 Intake: Intake, IV Titration 600 Amount Sodium Chloride 0.9% 1, 600 000 ml @ 100 mls/hr IV . Q10H [facility] Rx#:[id number] Oral 700 582 Output: Urine 0 901 Other: Voiding Method Toilet Toilet Weight 61.235 kg 60.4 kg Gen: This is a 68-year-old -[place] female. She is found ambulating in her room and appears in no acute distress. HEENT: Head is atraumatic, normocephalic. Pupils equal, round. Sclerae is anicteric. NECK: Supple. No JVD. No lymphadenopathy. No thyromegaly. LUNGS: Clear to auscultation. No wheezes or rhonchi. No intercostal retractions. HEART: irregular rate and rhythm. No murmur. ABDOMEN: Soft. Bowel sounds are present. No masses. No tenderness. EXTREMITIES: trace bilateral pedal edema. No calf tenderness. NEUROLOGICAL: Patient is awake, alert and oriented x3. Cranial nerves 2 through 12 are grossly intact. Results 09/18/18 06:35 09/18/18 06:35 Cardiac Enzymes 09/17/18 09/17/18 09/17/18 Range/Units 19:10 19:10 20:20 AST 22 (14-36) U/L CK-MB (CK-2) 4.6 H 4.0 H (0.0-2.4) ng/mL Troponin I 0.072 H* 0.064 H* (0.000-0.034) ng/mL 09/18/18 Range/Units 00:30 AST (14-36) U/L CK-MB (CK-2) 3.9 H (0.0-2.4) ng/mL Troponin I 0.059 H* (0.000-0.034) ng/mL Coagulation 09/17/18 Range/Units 20:20 PT 17.7 H (9.0-12.0) sec APTT 33.4 H (22.0-30.0) sec Lipids 09/18/18 Range/Units 00:30 Triglycerides 83 (<150) mg/dL Cholesterol 52 (<200) mg/dL HDL Cholesterol 25 L (40-60) mg/dL CBC 09/17/18 09/18/18 Range/Units 19:10 06:35 WBC 8.2 8.2 (3.8-10.6) k/uL RBC 5.54 H 5.10 (3.80-5.40) m/uL Hgb 15.1 13.7 (11.4-16.0) gm/dL Hct 47.0 H 44.2 (34.0-46.0) % Plt Count 154 146 L (150-450) k/uL Comprehensive Metabolic Panel 09/17/18 09/18/18 Range/Units 19:10 06:35 Sodium 137 138 (137-145) mmol/L Potassium 4.8 4.2 (3.5-5.1) mmol/L Chloride 102 104 (98-107) mmol/L Carbon Dioxide 21 L 23 (22-30) mmol/L BUN 53 H 49 H (7-17) mg/dL Creatinine 2.92 H 2.72 H (0.52-1.04) mg/dL Glucose 86 87 (74-99) mg/dL Calcium 9.3 8.8 (8.4-10.2) mg/dL AST 22 (14-36) U/L ALT 18 (9-52) U/L Alkaline Phosphatase 61 (38-126) U/L Total Protein 7.0 (6.3-8.2) g/dL Albumin 3.7 (3.5-5.0) g/dL Current Medications Generic Name Dose Route Start Last Admin Trade Name Vijaya PRN Reason Stop Dose Admin Aspirin 81 mg 09/19/18 09:00 Aspirin PO DAILY JAKE Carvedilol 3.125 mg 09/18/18 13:30 09/18/18 14:04 Coreg PO 3.125 mg AC-BID JAKE Administration Furosemide 80 mg 09/18/18 13:30 09/18/18 14:04 Lasix PO 80 mg DAILY JAKE Administration Sodium Chloride 1,000 mls @ 100 mls/hr 09/17/18 20:30 09/18/18 06:08 Saline 0.9% IV 100 mls/hr .Q10H JAKE Administration Losartan Potassium 25 mg 09/18/18 13:30 09/18/18 14:04 Cozaar PO 25 mg DAILY JAKE Administration Spironolactone 25 mg 09/18/18 13:30 09/18/18 14:04 Aldactone PO 25 mg DAILY JAKE Administration Intake and Output 09/17/18 09/18/18 09/18/18 22:59 06:59 14:59 Intake Total 1300 582 Output Total 0 901 Balance 0 399 582 Intake: Intake, IV Titration 600 Amount Sodium Chloride 0.9% 1, 600 000 ml @ 100 mls/hr IV . Q10H JAKE Rx#:[id number] Oral 700 582 Output: Urine 0 901 Other: Voiding Method Toilet Toilet Weight 61.235 kg 60.4 kg 09/18/18 06:35 09/18/18 06:35 Assessment and Plan Plan: 1. Acute lower GI bleed with stable hemoglobin. 2. Atrial tachycardia with aberrancy. 3. Severe nonischemic cardiomyopathy. 4. Moderate pulmonary hypertension. 5. Hypertension. 6. Elevated troponin not consistent with acute coronary syndrome. Plan: Echocardiogram has been ordered. Home medications will be resumed including Lasix 80 mg daily, Coreg 3.125 mg twice daily, losartan 25 mg daily and spironolactone 25 mg daily. Aspirin will be resumed at 81 mg daily and Plavix will be placed on hold. Thank you kindly for this consultation. There is practitioner note has been reviewed, I agree with the document and findings and plan of care. Patient has been seen and examined
[2018-09-19] MEDS: SODIUM CHLORIDE 0.9% 1,000 ML IV SCH ×3 (00:27→20:29)
[2018-09-19] MEDS: CARVEDILOL 3.125 MG TAB PO SCH ×2 (06:50→17:26)
--- NOTE | 2018-09-19 07:12 | ECHOF ---
Referral Reason:LVF MEASUREMENTS -------- HEIGHT: 167.6 cm WEIGHT: 60.3 kg BP: 99/56 RVIDd: 4.2 cm (< 3.3) IVSd: 1.0 cm (0.6 - 1.1) LVIDd: 6.6 cm (3.9 - 5.3) LVPWd: 1.0 cm (0.6 - 1.1) IVSs: 1.0 cm LVIDs: 5.8 cm LVPWs: 1.1 cm LAESV Index (A-L): 39.86 ml/m Ao Diam: 2.8 cm (2.0 - 3.7) AV Cusp: 1.5 cm (1.5 - 2.6) LA Diam: 3.1 cm (2.7 - 3.8) EPSS: 1.8 cm RAP: 15.00 mmHg RVSP: 65.34 mmHg MV EF SLOPE: 115.99 mm/s (70 - 150) MV EXCURSION: 1.76 cm (> 18.000) FINDINGS -------- Undetermined rhythm. This was a technically good study. The left ventricle is severely dilated. Left ventricular wall thickness is normal. There is sever e global hypokinesis of LV . Overall left ventricular systolic function is severely impaired with, an EF < 20%. The right ventricle is severely enlarged. LA is severely dilated >40 ml/m2 The right atrium is markedly enlarged. The aortic valve is trileaflet and appears structurally normal. Trace amount of aortic regurgitatio n. There is no evidence of aortic stenosis. The mitral valve leaflets are mildly thickened. Moderate mitral annular calcification present. Mo rgocqy-lh-raddiq mitral regurgitation is present. Severe tricuspid regurgitation present. There is severe pulmonary hypertension. The right ventric ular systolic pressure, as measured by Doppler, is 65.34mmHg. Trace/mild (physiologic) pulmonic regurgitation. The aortic root size is normal. The inferior vena cava is dilated with poor inspiratory collapse which is consistent with estimated r ight atrial pressure of 20 mmHg. There is no pericardial effusion. CONCLUSIONS -------- 1. Undetermined rhythm. 2. This was a technically good study. 3. The left ventricle is severely dilated. 4. Left ventricular wall thickness is normal. 5. There is severe global hypokinesis of LV . 6. Overall left ventricular systolic function is severely impaired with, an EF < 20%. 7. The right ventricle is severely enlarged. 8. LA is severely dilated >40 ml/m2 9. The right atrium is markedly enlarged. 10. The aortic valve is trileaflet and appears structurally normal. 11. Trace amount of aortic regurgitation. 12. The mitral valve leaflets are mildly thickened. 13. Moderate mitral annular calcification present. 14. Xnyabnbi-hz-waustl mitral regurgitation is present. 15. Severe tricuspid regurgitation present. 16. There is severe pulmonary hypertension. 17. The right ventricular systolic pressure, as measured by Doppler, is 65.34mmHg. 18. Trace/mild (physiologic) pulmonic regurgitation. 19. The aortic root size is normal. 20. The inferior vena cava is dilated with poor inspiratory collapse which is consistent with estimat ed right atrial pressure of 20 mmHg. 21. There is no pericardial effusion. AGATE SETTER: Herberth Rizvi RDCS
[2018-09-19] MEDS: LOSARTAN 25 MG TAB PO SCH ×2 (08:04→20:28)
[2018-09-19] MEDS: ASPIRIN 81 MG PO SCH (08:04)
[2018-09-19] MEDS: FUROSEMIDE 80 MG TAB PO SCH (08:04)
[2018-09-19] MEDS: SPIRONOLACTONE 25 MG TAB PO SCH (08:04)
--- NOTE | 2018-09-19 12:29 | PN ---
PROGRESS NOTE DATE OF SERVICE: 09/19/2018. HISTORY: The patient is a 68-year-old male with history of liver cirrhosis and cardiomyopathy, admitted to the hospital with rectal bleeding. She had 5 episodes of bright red blood per rectum 2 days ago. Aspirin and Plavix are on hold. Since yesterday she has not had any further bleeding, in fact according to the nursing staff she had brown bowel movement this morning. The patient denies any abdominal pain. Reports no nausea or vomiting. PHYSICAL EXAMINATION: Appears comfortable, in no apparent distress. VITAL SIGNS: Stable. Blood pressure 113/59, pulse rate 63, temperature 97.6. HEENT examination unremarkable. Conjunctivae pink. Sclerae anicteric. Oral cavity no lesions. NECK: No JVD or lymph node enlargement. CHEST: Clear to auscultation. HEART: Regular rate and rhythm. ABDOMEN: Soft. Bowel sounds are positive. No organomegaly. EXTREMITIES: No pedal edema. SKIN: Rash on the upper extremities. LABS: Done today, WBC 8.2, hemoglobin 13.7, platelets 146,000, BUN 49, creatinine 3.72. IMPRESSION: 1. Acute lower gastrointestinal bleed, resolved. 2. Elevated troponin and history of cardiomyopathy. Cardiology following the patient closely. 3. History of liver cirrhosis, well compensated. RECOMMENDATIONS: Recommend a colonoscopy, but at this time the patient continues to refuse. Her bleeding, however, has spontaneously resolved. Aspirin and Plavix are on hold at this time. Since the patient does not want to have a colonoscopy we will advance diet as tolerated. We will follow her closely during hospital stay. Thank you for this consultation. ALICIAL / IJN: [id number] /
--- NOTE | 2018-09-19 14:50 | PN ---
PROGRESS NOTE DATE OF SERVICE: 09/18/2018 CHIEF COMPLAINT: Generalized weakness, shortness of breath, diarrhea, and cardiomyopathy. HISTORY OF PRESENT ILLNESS: This lady is doing better. There has been no signs of bleeding. She is awake, alert. She is not having any shortness of breath or chest pain. PHYSICAL EXAM: Chest demonstrates both lung nathan to be fairly clear. Cardiac exam demonstrates irregularly irregular rhythm. Abdomen is soft and nontender. IMPRESSION: 1. Mental status changes. 2. Possible gastrointestinal bleed. 3. Generalized weakness. 4. Cardiomyopathy. PLAN: Continue rehydration and try to progress activity and diet. We will also monitor her renal function. MMODL / IJN: [id number] /
--- NOTE | 2018-09-19 16:02 | PN ---
PROGRESS NOTE Mrs. Wall has a history of right-sided enlargement with significant pulmonary hypertension, global LV dysfunction with ejection fraction of less than 20%. Her echo revealed right-sided enlargement as well as decreased ejection fraction and elevated PA pressures. I compared with the previous studies and the echo findings are similar and RV enlargement is a little bit more but overall similar findings are noted. I am recommending that we start her on aspirin 81 mg daily. She can increase activity. Patient is not very compliant. Refuses to have any workup for GI bleed in forms of colonoscopy. She does not have any chest pain or shortness of breath. She is comfortable at rest. We will continue current medications and start her on aspirin 81 mg daily, increase activity and she can be discharged. Prognosis remains poor. MMODL / IJN: [id number] /
--- NOTE | 2018-09-19 16:20 | HP ---
HISTORY AND PHYSICAL CHIEF COMPLAINT: Difficulty breathing, weakness and cardiomyopathy as well as possible GI bleed. HISTORY OF PRESENT ILLNESS: This is another admission for this 68-year-old female. She has been a very compliant patient over the last several years after she was admitted for anasarca, severe alcoholic cardiomyopathy and cirrhosis. Since then, she has been well maintained. She recently has had some unexplained difficulty with the right hand and forearm were it became swollen for no reason. This did subside. Then she developed some swelling in the left side of face this also seems to have subsided. Workup has not revealed any etiology. She started to have shortness of breath and came to the emergency room. She was diagnosed as probably having exacerbation of chronic obstructive pulmonary disease. However, there is also suggested that she may be experiencing GI bleeding. REVIEW OF SYSTEMS: She denies any focal neurologic deficits, confusion, syncope, change in vision hearing, chest pain, cough, hemoptysis, chest pain, orthopnea, PND, abdominal pain, vomiting, hematemesis, melena, jaundice, hematuria, frequency, urgency, etc. She has had no dysuria, hematuria, etc. However, in the emergency room, creatinine was 2.9 and BUN 53. She does not smoke or drink any longer. PHYSICAL EXAM: Blood pressure is 81/69 with a pulse of 120 and irregularly irregular in atrial fibrillation. Head, ears, eyes, nose, mouth, and throat were normal and neck veins are not distended. Carotids normal. CHEST: Clear but breath sounds are shallow. Cardiac exam is normal except for the atrial fib and tachycardia. The abdomen is slightly distended, but there are no definite masses or visceromegaly. Bowel sounds present. Extremities are normal and neurological she is intact. IMPRESSION: 1. Acute respiratory failure. 2. Congestive heart failure. 3. Atrial fibrillation. 4. Possible GI bleed. 5. Renal failure. PLAN: 1. Bed rest. 2. IV fluids. 3. Monitor hemoglobins, vital signs and respiratory status. MMODL / IJN: [id number] /
--- NOTE | 2018-09-19 17:11 | PN ---
PROGRESS NOTE CHIEF COMPLAINT: Acute respiratory failure. HISTORY OF PRESENT ILLNESS: This lady is doing better. She is feeling stronger. She is not having any breathing issues. There has been no signs of any GI bleeding. PHYSICAL EXAM: Chest is fairly clear and the cardiac exam demonstrates atrial fibrillation. Abdomen is soft, nontender. Extremities are normal. IMPRESSION: 1. Acute respiratory failure. 2. Generalized weakness and debility. 3. Possible gastrointestinal bleed. 4. Congestive heart failure. 5. Cardiomyopathy. PLAN: Continue on current course. MMODL / IJN: [id number] /
[2018-09-20] MEDS: CARVEDILOL 3.125 MG TAB PO SCH ×2 (06:34→17:25)
[2018-09-20] MEDS: SPIRONOLACTONE 25 MG TAB PO SCH (08:21)
[2018-09-20] MEDS: ASPIRIN 81 MG PO SCH (08:21)
[2018-09-20] MEDS: FUROSEMIDE 80 MG TAB PO SCH (08:21)
[2018-09-20] MEDS: SODIUM CHLORIDE 0.9% 1,000 ML IV SCH ×2 (10:45→17:27)
--- NOTE | 2018-09-20 11:06 | CDI ---
Documentation Clarification Form Date: 09/20/18 From: Mariluz Busby RN Admit Date: 09/17/2018 8:25:00 PM Patient Name: Jude Wall Visit Number: [id number] ATTENTION: The Clinical Documentation Specialists (CDI) and [facility] Coding Staff appreciate your assistance in clarifying documentation. Please respond to the clarification below the line at the bottom and electronically sign. The CDI & [facility] Coding staff will review the response and follow-up if needed. Please note: Queries are made part of the Legal Health Record. If you have any questions, please contact the author of this message via ITS. Dr. Michelle Cotto, Can you please render your opinion on the following documentation? CHF is documented throughout the chart. Your progress note on 09/19 states "Mrs. Wall has a history of right-sided enlargement with significant pulmonary hypertension, global LV dysfunction with ejection fraction of less than 20%. Her echo revealed right-sided enlargement as well as decreased ejection fraction and elevated PA pressures. I compared with the previous studies and the echo findings are similar. History/Risk Factors: heart failure, HTN, pneumonia, renal disease, sickle cell anemia, Hep. C, cardiomyopathy, ex. smoker Clinical Indicators: VS: T 97.6, P 144, R 22, 116/89, 93% 2L BNP: was not drawn Echocardiogram Results: <20% Chest X Ray: severe cardiomegaly. No overt heart failure Consult 09/18: Trace of bilateral pedal edema Treatment: Lasix 80 mg PO Daily vehicle monitor technician Heart healthy diet Daily weights and strict I&O's In your professional opinion, can you please clarify if? CHF ruled in CHF ruled out? If CHF please state the acuity and type of CHF if known? Systolic Heart Failure: Acute Chronic Acute on Chronic Systolic & Diastolic Heart Failure: Acute Chronic Acute on Chronic Heart Failure Unable to Determine Other, please specify Acute on chronic systolic heart failure [facility]
[2018-09-20 15:50] LABS: Basophils % (A) 0 %; Eosinophils # (A) 0.1 k/uL (0-0.7); Eosinophils % (A) 1 %; HCT 40.9 % (34.0-46.0); HGB 12.3 gm/dL (11.4-16.0); Hypochromasia Moderate; Lymphocytes # (A) 0.9 k/uL (1.0-4.8); Lymphocytes % (A) 13 %; MCHC 30.1 g/dL (31.0-37.0); MCV 89.6 fL (80.0-100.0); Mean Platelet Volume 7.2; Monocytes # (A) 0.4 k/uL (0-1.0); Monocytes % (A) 7 %; Neutrophils # (A) 5.3 k/uL (1.3-7.7); Neutrophils % (A) 78 %; Platelet Count 127 k/uL (150-450); RBC 4.56 m/uL (3.80-5.40); RDW 15.8 % (11.5-15.5); WBC 6.8 k/uL (3.8-10.6)
--- NOTE | 2018-09-20 15:52 | XR ---
EXAMINATION TYPE: XR chest 2V DATE OF EXAM: 09/20/2018 COMPARISON: 09/17/2018 INDICATION: CHF TECHNIQUE: Frontal and lateral views of the chest are obtained. FINDINGS: The heart size is markedly enlarged. The pulmonary vasculature is normal. Small posterior pleural effusion may be present.. Streak atelectasis or fluid within the minor fissu re on the right may be present. IMPRESSION: 1. Marked cardiomegaly. 2. Small posterior pleural effusion.
[2018-09-20 16:05] LABS: Albumin 3.7 g/dL (3.5-5.0); Calcium 8.8 mg/dL (8.4-10.2); Potassium 4.5 mmol/L (3.5-5.1); Total Bilirubin 1.6 mg/dL (0.2-1.3); Total Protein 6.6 g/dL (6.3-8.2)
--- NOTE | 2018-09-20 16:15 | PN ---
PROGRESS NOTE This is a lady with a known history of cardiomyopathy, probably nonischemic cardiomyopathy. She has come into the hospital with a question of GI bleed, but refused colonoscopy. Hemoglobin is stable. I explained to her that she has a high risk for mortality given her poor ejection fraction, pulmonary hypertension and also biventricular enlargement. However, she does not want to have any invasive procedures performed. She wishes to go home on medical therapy and I have advised her to see Dr. Laguna who she sees as an outpatient. Physical exam revealed blood pressure 110/70, pulse rate is 70 per minute. JVD is evident. S1-S2 heard normally. Short systolic murmur noted. Lungs reveal diminished air entry. Abdomen and lower extremity exam is unchanged. Prognosis remains poor and patient is fully aware of the fact that she is at high risk for mortality given her cardiac condition. MMROCHELLEL / MARTHAN: [id number] /
--- NOTE | 2018-09-20 19:42 | P.PN ---
Subjective Progress Note Date: 09/20/18 Principal diagnosis: Blood per rectum The patient is tolerating her diet. She denies any abdominal pain. She reports a bowel movement today with a small amount of blood per wiping but no gross bleeding. Objective - Vital Signs Vital signs: Vital Signs Temp 98.1 F 09/20/18 15:00 Pulse 66 09/20/18 15:00 Resp 16 09/20/18 15:00 BP 108/72 09/20/18 15:00 Pulse Ox 98 09/20/18 15:00 Intake & Output 09/20/18 09/20/18 09/21/18 06:59 18:59 06:59 Output Total 200 1200 Balance -200 -1200 Weight 61.5 kg Output: Urine 200 1200 Other: Voiding Method Toilet # Voids 3 - Exam On physical examination, patient appears comfortable in no apparent distress. HEAD: Normocephalic, atraumatic. EYES: No scleral icterus. No conjunctival injection. MOUTH: No lesions, tongue midline. NECK: Trachea midline, no gross abnormalities. CHEST: Clear to auscultation with no wheezing or rhonchi appreciated. ABDOMEN: Soft, obese. Bowel sounds are positive. No organomegaly. No guarding or rigidity. EXTREMITIES: No pedal edema. SKIN: No rashes, no jaundice. NEUROLOGIC: Alert and oriented. No focal deficits. - Labs CBC & Chem 7: 09/20/18 15:42 09/20/18 15:42 Labs: Abnormal Lab Results - Last 24 Hours (Table) 09/20/18 09/20/18 Range/Units 15:42 15:42 MCHC 30.1 L (31.0-37.0) g/dL RDW 15.8 H (11.5-15.5) % Plt Count 127 L (150-450) k/uL Lymphocytes # 0.9 L (1.0-4.8) k/uL Chloride 111 H (98-107) mmol/L BUN 48 H (7-17) mg/dL Creatinine 2.18 H (0.52-1.04) mg/dL Total Bilirubin 1.6 H (0.2-1.3) mg/dL Microbiology - Last 24 Hours (Table) 09/17/18 21:24 Urine Culture - Final Urine,Voided Escherichia coli Assessment and Plan (1) Lower gastrointestinal hemorrhage Narrative/Plan: Patient presenting with complaints of bright red blood per rectum which has improved since presentation. She reports one nonbloody bowel movement today with a small amount of blood with wiping. No abdominal pain reported. The patient is not interested in colonoscopic evaluation. Current Visit: Yes Status: Acute Code(s): K92.2 - GASTROINTESTINAL HEMORRHAGE, UNSPECIFIED SNOMED Code(s): 98725119 (2) Atrial fibrillation with RVR Current Visit: Yes Status: Acute Code(s): I48.91 - UNSPECIFIED ATRIAL FIBRILLATION SNOMED Code(s): 877007145347100 (3) Congestive heart failure (CHF) Current Visit: No Status: Acute Code(s): I50.9 - HEART FAILURE, UNSPECIFIED SNOMED Code(s): 67903058 (4) Pulmonary hypertension Current Visit: No Status: Acute Code(s): I27.2 - OTHER SECONDARY PULMONARY HYPERTENSION * DO NOT USE * SNOMED Code(s): 29134954 Plan: Supportive care Okay for diet Continue to monitor hemoglobin and transfuse as needed Patient is not interested in colonoscopy for evaluation at this time Would recommend restarting anticoagulation therapy given that the patient is not interested in undergoing endoscopic evaluation while she is in the hospital Patient is okay to follow up with gastroenterology as an outpatient Thank you for allowing us to participate in the care of this patient, we will continue to follow
[2018-09-20] MEDS: LOSARTAN 25 MG TAB PO SCH (20:05)
[2018-09-21] MEDS: SODIUM CHLORIDE 0.9% 1,000 ML IV SCH (06:06)
[2018-09-21 07:22] VITALS: BP 128/83; PULSE 64; TEMP 97.5
[2018-09-21] MEDS: SPIRONOLACTONE 25 MG TAB PO SCH (07:44)
[2018-09-21] MEDS: CARVEDILOL 3.125 MG TAB PO SCH (07:44)
[2018-09-21] MEDS: FUROSEMIDE 80 MG TAB PO SCH (07:44)
[2018-09-21] MEDS: ASPIRIN 81 MG PO SCH (07:45)
[2018-09-21 09:58] VITALS: RESP 18
--- NOTE | 2018-09-22 15:50 | PN ---
PROGRESS NOTE DATE OF SERVICE: 09/20/2018 CHIEF COMPLAINT: Renal failure, cardiomyopathy, alcoholism, congestive heart failure and renal failure and atrial fibrillation. HISTORY OF PRESENT ILLNESS: This lady remains weak, but she is stabilizing. She is not short of breath and she has had no pain. BUN is 49 with a creatinine of 2.7. PHYSICAL EXAM: Breath sounds fairly clear and cardiac exam is unchanged with atrial fibrillation. Abdomen is soft, nontender. IMPRESSION: 1. Cardiomyopathy. 2. Alcoholism. 3. Congestive heart failure. 4. Renal failure. PLAN: Try to increase activity and hopefully, she go home in a day or two. MMODL / IJN: [id number] /
--- NOTE | 2018-09-22 16:26 | DS ---
DISCHARGE SUMMARY DATE OF SERVICE: 09/21/2018 CHIEF COMPLAINT: Shortness of breath, weakness. HISTORY OF PRESENT ILLNESS AND PHYSICAL EXAM: Details of this lady's history and physical can be found in the initial workup. LABORATORY STUDIES: While she was in the hospital she had laboratory studies, details of which can be found in the laboratory section of her chart. COURSE IN HOSPITAL: After admission, she was placed on bedrest, started on intravenous fluids and diuresed somewhat. Renal function improved slightly. She was found to have UTI and this was treated. She was doing well enough that it was felt she could return home on the and she will require visiting nurse and home care as well. FINAL DIAGNOSES: 1. Congestive heart failure. 2. Possible gastrointestinal blood loss. 3. Congestive heart failure. 4. Cardiomyopathy. 5. Atrial fibrillation. 6. History of alcoholism. OPERATIONS: None. CONSULTATION: None. She is improved. MMODL / IJN: [id number] /
== END 2018-09-21 12:07 | disposition home health service (06) | DRG 377 ==
LOC: EC 18:37 → 3SCARD 20:25 → 4MS4W 09-20 20:26
PROVIDERS: ADMIT Family Medicine; ATTEND Family Medicine
DX: K92.2 Gastrointestinal hemorrhage, unspecified (principal); I50.23 Acute on chronic systolic (congestive) heart failure; I47.1 Supraventricular tachycardia; N17.9 Acute kidney failure, unspecified; N39.0 Urinary tract infection, site not specified; I42.6 Alcoholic cardiomyopathy; I11.0 Hypertensive heart disease with heart failure; B18.2 Chronic viral hepatitis C; D57.1 Sickle-cell disease without crisis; F10.20 Alcohol dependence, uncomplicated; F17.200 Nicotine dependence, unspecified, uncomplicated; I27.20 Pulmonary hypertension, unspecified; I48.91 Unspecified atrial fibrillation; I49.3 Ventricular premature depolarization; K74.60 Unspecified cirrhosis of liver; Z79.02 Long term (current) use of antithrombotics/antiplatelets; Z79.82 Long term (current) use of aspirin; Z79.899 Other long term (current) drug therapy; Z82.49 Family history of ischemic heart disease and other diseases of the circulatory system; Z91.040 Latex allergy status; Z88.0 Allergy status to penicillin; Z91.018 Allergy to other foods
CPT/HCPCS: 36415; 71046; 80048; 80053; 80061; 81001; 82550; 82553; 83605; 83735; 84100; 84484; 85025; 85610; 85730; 87086; 93005; 93306; 94760; 96361; 96374; 99285

== ENCOUNTER 2018-10-02 16:53 | Inpatient (IN) | payer MEDICARE, OTHER ==
[2018-10-02] MEDS ORDERED: ASPIRIN 81 MG PO STA (17:40)
[2018-10-02] MEDS ORDERED: ENOXAPARIN 80 MG/0.8 ML SYRINGE SQ STA (17:41)
[2018-10-02] MEDS ORDERED: MORPHINE SULFATE 2 MG/ML SYRINGE IVP STA (17:42)
--- NOTE | 2018-10-02 17:50 | ED ---
General Adult HPI - General Chief complaint: Shortness of Breath Stated complaint: Leg Swelling Time Seen by Provider: 10/02/18 17:14 Source: patient, EMS Mode of arrival: EMS Limitations: no limitations - History of Present Illness Initial comments: Patient is a 68-year-old female who presents with a chief complaint of bilateral lower extremity pain. Patient states that this is been going on for months. One of our EMT's in the emergency department states that she responded to a call to her house yesterday when the patient was complaining of right- sided swelling. At that time she denied transferred to the hospital and states that Dr. Griffith increased her Lasix to 80 mg. Patient presents today for worsening of her pain. She cannot identify an inciting incident nor any aggravating or alleviating factors. She denies any fever, chills, nausea or vomiting. She admits to some abdominal pain. - Related Data Home Medications Medication Instructions Recorded Confirmed Aspirin [Adult Low Dose Aspirin EC] 81 mg PO DAILY 09/11/17 10/02/18 Clopidogrel [Plavix] 75 mg PO DAILY 09/11/17 10/02/18 Losartan [Cozaar] 25 mg PO DAILY 09/11/17 10/02/18 Carvedilol [Coreg] 3.125 mg PO BID 09/17/18 10/02/18 Furosemide [Lasix] 80 mg PO DAILY 09/17/18 10/02/18 Previous Rx's Medication Instructions Recorded Spironolactone [Aldactone] 25 mg PO DAILY #90 tab 07/19/15 Allergies Allergy/AdvReac Type Severity Reaction Status Date / Time latex Allergy Dyspnea Verified 10/02/18 17:35 Penicillins Allergy Rash/Hives Verified 10/02/18 17:35 Review of Systems ROS Statement: Those systems with pertinent positive or pertinent negative responses have been documented in the HPI. ROS Other: All systems not noted in ROS Statement are negative. Musculoskeletal: Reports: as per HPI, arthralgia, myalgia Past Medical History Past Medical History: Blood Disorder, Heart Failure, Hypertension, Osteoarthritis (OA), Pneumonia, Renal Disease, Skin Disorder Additional Past Medical History / Comment(s): enlarged heart, sickle cell anemia. CHF,cardiomyopathy,pulmonary htn,previously charted Hepatitis C, and renal disease- pt has no knowlege of this History of Any Multi-Drug Resistant Organisms: None Reported Past Surgical History: No Surgical Hx Reported Past Anesthesia/Blood Transfusion Reactions: No Reported Reaction Past Psychological History: No Psychological Hx Reported Smoking Status: Former smoker Past Alcohol Use History: Abuse, Daily, Heavy Past Drug Use History: None Reported - Past Family History Mother Family Medical History: Congestive Heart Failure (CHF) Father Family Medical History: No Reported History General Exam Limitations: no limitations General appearance: alert, in no apparent distress Head exam: Present: atraumatic, normocephalic Eye exam: Present: normal appearance ENT exam: Present: normal exam Neck exam: Present: normal inspection Respiratory exam: Present: normal lung sounds bilaterally. Absent: respiratory distress, wheezes Cardiovascular Exam: Present: regular rate, normal rhythm GI/Abdominal exam: Present: soft, tenderness (Lower abdominal tenderness). Absent: distended Rectal exam: Present: deferred Extremities exam: Present: tenderness, pedal edema, other (Patient has pitting edema of bilateral lower extremities to the knees. There are open skin wounds with purulent material present. The legs are erythematous and warm. I am unable to obtain a Doppler pulse bilaterally in the DP and PT distributions.) Back exam: Present: normal inspection Neurological exam: Present: alert, altered Psychiatric exam: Present: normal affect, normal mood Skin exam: Present: warm, erythema, vesicles Course Vital Signs 10/02/18 10/02/18 10/02/18 17:00 17:58 18:00 Temperature 98.3 F Pulse Rate 61 Respiratory 24 Rate Blood Pressure 113/94 104/87 104/87 O2 Sat by Pulse 100 90 L 98 Oximetry 10/02/18 10/02/18 10/02/18 18:01 18:10 18:20 Temperature Pulse Rate 84 62 Respiratory 18 20 18 Rate Blood Pressure 104/73 120/83 120/83 O2 Sat by Pulse 99 82 L 100 Oximetry 10/02/18 10/02/18 10/02/18 18:30 18:40 18:50 Temperature Pulse Rate 65 66 67 Respiratory 14 20 13 Rate Blood Pressure 120/83 116/85 116/85 O2 Sat by Pulse 91 L 100 100 Oximetry 10/02/18 10/02/18 10/02/18 19:00 19:10 19:20 Temperature Pulse Rate 68 73 69 Respiratory 10 L 19 20 Rate Blood Pressure 116/85 112/90 112/90 O2 Sat by Pulse 99 97 76 L Oximetry 10/02/18 10/02/18 10/02/18 19:30 19:40 19:50 Temperature Pulse Rate 68 80 Respiratory 13 10 L Rate Blood Pressure 112/90 110/94 110/94 O2 Sat by Pulse 99 Oximetry 10/02/18 10/02/18 10/02/18 20:00 20:20 20:30 Temperature Pulse Rate 70 64 Respiratory 18 14 Rate Blood Pressure 110/94 O2 Sat by Pulse 100 99 Oximetry 10/02/18 10/02/18 10/02/18 20:40 20:50 21:00 Temperature Pulse Rate 65 68 70 Respiratory 12 19 10 L Rate Blood Pressure 116/93 116/93 116/93 O2 Sat by Pulse 100 100 100 Oximetry Medical Decision Making - Medical Decision Making Patient presents with chief complaint of bilateral lower extremity pain. On initial evaluation, vitals are stable, patient is in no apparent distress. Examination reveals erythema, blistering, and purulent drainage of bilateral lower extremities. Right lower extremity is more severe than the left. There are no Doppler pulses present. Concern for soft tissue infection versus arterial occlusion. Patient will be evaluated with basic labs including blood cultures, lactic acid, cardiac enzymes, chest x-ray, computed tomography scan with contrast of the lower extremities. Patient given a dose of Lovenox, morphine for pain, and aspirin. EKG performed at 1710 shows sinus rhythm with a rate of 77 bpm. Segment appeared to be within normal limits. There are no acute signs of ischemia. When compared to previous EKG performed on 09/17/2018 , waveforms are similar. No acute changes. 6:05 PM Case discussed with Dr. Gomez who recommends waiting for the computed tomography scan results and discussing the case with [facility] vascular surgery. 6:30 PM Patient's laboratory evaluation reveals a creatinine above 2 and a decreased GFR. Patient will not be able to have IV contrast for CAT scan. We will still perform a CT without contrast to rule out soft tissue infection of the lower extremities. 6:44 PM Case discussed with Dr. Genao who recommends arterial doppler at this time. he states that given the physical findings, patient doesn't likely need emergent surgical intervention. He states that he is willing to accept transfer if deemed necessary, however we will wait for other studies to result prior to finalizing disposition. 7:50 PM Lab evaluation this patient shows chronic kidney disease, lactic acid is within normal limits. Arterial Dopplers show faint signal bilaterally in the femoral distribution however the tech was unable to get signals where else. On reevaluation, the distal extremities are still warm, sensation is intact, motor is intact. Case discussed again with Dr. Gomez. Patient will be admitted for cellulitis and elevated troponin at this facility. Dr. Acevedo evaluated the patient in the morning. The decision was made to start the patient on heparin given elevated troponin and absent pulses. 8:59 PM Ultrasound does not identify any DVT of the lower extremities. CT scans show anasarca, and extensive soft tissue edema of bilateral lower extremities. No fracture or bony destructive process. No free air or gas formation in the soft tissues identified. 10:[address] Griffith who accepts admission. Dr. gomez, Dr. Saldana, and Dr. Paniagua is on consult. - Lab Data Result diagrams: 10/02/18 17:26 10/02/18 17:26 Lab Results 10/02/18 10/02/18 10/02/18 Range/Units 17:26 17:26 17:26 WBC 8.5 (3.8-10.6) k/uL RBC 4.50 (3.80-5.40) m/uL Hgb 12.4 (11.4-16.0) gm/dL Hct 38.9 (34.0-46.0) % MCV 86.3 (80.0-100.0) fL MCH 27.5 (25.0-35.0) pg MCHC 31.9 (31.0-37.0) g/dL RDW 16.5 H (11.5-15.5) % Plt Count 131 L (150-450) k/uL Neutrophils % 79 % Lymphocytes % 11 % Monocytes % 7 % Eosinophils % 1 % Basophils % 0 % Neutrophils # 6.7 (1.3-7.7) k/uL Lymphocytes # 0.9 L (1.0-4.8) k/uL Monocytes # 0.6 (0-1.0) k/uL Eosinophils # 0.1 (0-0.7) k/uL Basophils # 0.0 (0-0.2) k/uL Hypochromasia Slight Anisocytosis Slight PT (9.0-12.0) sec INR (<1.2) APTT (22.0-30.0) sec Sodium 141 (137-145) mmol/L Potassium 4.7 (3.5-5.1) mmol/L Chloride 106 (98-107) mmol/L Carbon Dioxide 23 (22-30) mmol/L Anion Gap 12 mmol/L BUN 59 H (7-17) mg/dL Creatinine 2.44 H (0.52-1.04) mg/dL Est GFR (CKD-EPI)AfAm 23 (>60 ml/min/1.73 sqM) Est GFR (CKD-EPI)NonAf 20 (>60 ml/min/1.73 sqM) Glucose 86 (74-99) mg/dL Plasma Lactic Acid Connor 1.6 (0.7-2.0) mmol/L Calcium 8.8 (8.4-10.2) mg/dL Total Bilirubin 2.2 H (0.2-1.3) mg/dL AST 22 (14-36) U/L ALT 19 (9-52) U/L Alkaline Phosphatase 55 (38-126) U/L Troponin I (0.000-0.034) ng/mL NT-Pro-B Natriuret Pep pg/mL Total Protein 6.6 (6.3-8.2) g/dL Albumin 3.4 L (3.5-5.0) g/dL 10/02/18 10/02/18 10/02/18 Range/Units 17:26 17:26 17:26 WBC (3.8-10.6) k/uL RBC (3.80-5.40) m/uL Hgb (11.4-16.0) gm/dL Hct (34.0-46.0) % MCV (80.0-100.0) fL MCH (25.0-35.0) pg MCHC (31.0-37.0) g/dL RDW (11.5-15.5) % Plt Count (150-450) k/uL Neutrophils % % Lymphocytes % % Monocytes % % Eosinophils % % Basophils % % Neutrophils # (1.3-7.7) k/uL Lymphocytes # (1.0-4.8) k/uL Monocytes # (0-1.0) k/uL Eosinophils # (0-0.7) k/uL Basophils # (0-0.2) k/uL Hypochromasia Anisocytosis PT 12.3 H (9.0-12.0) sec INR 1.2 H (<1.2) APTT 29.8 (22.0-30.0) sec Sodium (137-145) mmol/L Potassium (3.5-5.1) mmol/L Chloride (98-107) mmol/L Carbon Dioxide (22-30) mmol/L Anion Gap mmol/L BUN (7-17) mg/dL Creatinine (0.52-1.04) mg/dL Est GFR (CKD-EPI)AfAm (>60 ml/min/1.73 sqM) Est GFR (CKD-EPI)NonAf (>60 ml/min/1.73 sqM) Glucose (74-99) mg/dL Plasma Lactic Acid Connor (0.7-2.0) mmol/L Calcium (8.4-10.2) mg/dL Total Bilirubin (0.2-1.3) mg/dL AST (14-36) U/L ALT (9-52) U/L Alkaline Phosphatase (38-126) U/L Troponin I 0.051 H* (0.000-0.034) ng/mL NT-Pro-B Natriuret Pep 52021 pg/mL Total Protein (6.3-8.2) g/dL Albumin (3.5-5.0) g/dL Disposition Clinical Impression: CHF exacerbation, Cardiorenal syndrome, Vasculopathy, Cellulitis, NSTEMI (non- ST elevated myocardial infarction) Disposition: ADMITTED IP TO THIS HOSP Condition: Fair Is patient prescribed a controlled substance at d/c from ED?: No Referrals: Montez Griffith MD [Primary Care Provider] - 1-2 days Decision to Admit Reason: Admit from EC - Out of Hospital Transfer - Req. Specs Out of Hospital Transfer - Requested Specifics: Telemetry Unit
[2018-10-02] MEDS ORDERED: KETOROLAC 30 MG/ML 1 ML VIAL IVP SCH (18:00)
[2018-10-02 18:01] LABS: Anisocytosis Slight; Basophils % (A) 0 %; Eosinophils # (A) 0.1 k/uL (0-0.7); Eosinophils % (A) 1 %; HCT 38.9 % (34.0-46.0); HGB 12.4 gm/dL (11.4-16.0); Hypochromasia Slight; Lymphocytes # (A) 0.9 k/uL (1.0-4.8); Lymphocytes % (A) 11 %; MCH 27.5 pg (25.0-35.0); MCHC 31.9 g/dL (31.0-37.0); MCV 86.3 fL (80.0-100.0); Mean Platelet Volume 8.2; Monocytes # (A) 0.6 k/uL (0-1.0); Monocytes % (A) 7 %; Neutrophils # (A) 6.7 k/uL (1.3-7.7); Neutrophils % (A) 79 %; Platelet Count 131 k/uL (150-450); RDW 16.5 % (11.5-15.5); WBC 8.5 k/uL (3.8-10.6)
[2018-10-02 18:11] LABS: Albumin 3.4 g/dL (3.5-5.0); Calcium 8.8 mg/dL (8.4-10.2); Potassium 4.7 mmol/L (3.5-5.1); Total Bilirubin 2.2 mg/dL (0.2-1.3); Total Protein 6.6 g/dL (6.3-8.2)
[2018-10-02] MEDS ORDERED: CEFEPIME 2 GM in SODIUM CHLORIDE 0.9% 50 ML IVPB STA (18:40)
[2018-10-02] MEDS ORDERED: VANCOMYCIN 1,250 MG in SODIUM CHLORIDE 0.9% 250 ML IVPB ONE (18:40)
[2018-10-02] MEDS ORDERED: SODIUM CHLORIDE 0.9% 1,000 ML IV ONE (18:40)
--- NOTE | 2018-10-02 19:59 | US ---
EXAMINATION TYPE: US venous doppler duplex LE BI DATE OF EXAM: 10/02/2018 7:45 PM COMPARISON: NONE CLINICAL HISTORY: Pain. right leg swelling; bilateral LE with skin ulcerations, dark skin with dry sk in appearance, pain in LE per patient x 1 month SIDE PERFORMED: Bilateral TECHNIQUE: The lower extremity deep venous system is examined utilizing real time linear array sonog delma with graded compression, Doppler sonography and color-flow sonography. VESSELS IMAGED: Common Femoral Vein Deep Femoral Vein Greater Saphenous Vein * Femoral Vein Popliteal Vein Small Saphenous Vein * Proximal Calf Veins (* superficial vessels) Right Leg: Negative for DVT; Small dual Femoral Veins are seen beside small Femoral Artery Left Leg: Negative for DVT as able to assess as patient is unable to relax left popliteal fossa for probe placement; however, left Popliteal Vein color flow patency and Left upper calf veins are demons trated. Valve wall thickening is noted in left Popliteal Vein. Left popliteal fossa complex cyst is a lso noted = 2.2 x 1.5 x 1.1cm . IMPRESSION: No evidence of deep venous thrombosis in both legs. Small left popliteal cyst.
--- NOTE | 2018-10-02 20:23 | XR ---
EXAMINATION TYPE: XR chest 2V DATE OF EXAM: 10/02/2018 COMPARISON: 09/20/2018 HISTORY: Heart failure TECHNIQUE: Frontal and lateral views of the chest are obtained. FINDINGS: Heart is enlarged. There is no gross heart failure. There is slight blunting of the right costophrenic angle. There are chest leads. Bony thorax is intact. There is old left-sided healed rib fractures. IMPRESSION: Moderately severe cardiomegaly. Small right pleural effusion. No significant change. No definite heart failure.
--- NOTE | 2018-10-02 20:32 | CT ---
EXAMINATION TYPE: CT abdomen pelvis wo con DATE OF EXAM: 10/02/2018 COMPARISON: None HISTORY: Abdominal and leg pain CT DLP: 399.9 mGycm Automated exposure control for dose reduction was used. TECHNIQUE: Helical acquisition of images was performed from the lung bases through the pelvis. FINDINGS: There is severe cardiomegaly. There is mild to moderate right pleural effusion. There is no pericardi al effusion. There is subsegmental atelectasis left lower lobe. Liver shows no focal defect. Spleen appears normal. Stomach appears normal. Gallbladder appears octavio l. Bile ducts are not dilated. There is moderate ascites fluid in the abdomen. Bladder distends shi hly. There is no inguinal hernia. There is no sign of free air. There is no adrenal mass. There is 3 cm cortical cyst upper pole left kidney. There are small calcifi cations in the left kidney. There is no hydronephrosis. I see no retroperitoneal adenopathy. Abdomina l aorta is atheromatous. There is 4.5 cm calcified uterine fibroid. There is 3 cm calcified uterine f ibroid. There is no evidence of a bowel obstruction. There is extensive subcutaneous edema around the abdomen. Bony structures are intact. IMPRESSION: EXTENSIVE SUBCUTANEOUS EDEMA. ASCITES AND RIGHT PLEURAL EFFUSION. FLUID COULD RELATE TO ANASARCA. SEV ERE CARDIOMEGALY. HEART FAILURE NOT ENTIRELY EXCLUDED. NONOBSTRUCTING LEFT RENAL CALCIFICATION.
--- NOTE | 2018-10-02 20:40 | CT ---
EXAMINATION TYPE: CT lower extremity RT wo con DATE OF EXAM: 10/02/2018 COMPARISON: None HISTORY: Abdominal and bilateral leg pain CT DLP: 2401 mGycm Automated exposure control for dose reduction was used. FINDINGS: The acetabulum is intact. There are calcified uterine fibroids. Proximal femur is intact. There is so me acetabular spurring. There is mild hip joint space narrowing. The knee joint is intact. Tibia and fibula appear intact. Bones of the foot appear intact. There is extensive subcutaneous edema around t he right leg. There is no evidence of a soft tissue mass. IMPRESSION: EXTENSIVE SUBCUTANEOUS EDEMA. NO FRACTURE SEEN. NO FOCAL BONY DESTRUCTIVE PROCESS.
--- NOTE | 2018-10-02 20:48 | CT ---
EXAMINATION TYPE: CT lower extremity LT wo con DATE OF EXAM: 10/02/2018 COMPARISON: None HISTORY: Abdominal and bilateral leg pain CT DLP: 2401 mGycm Automated exposure control for dose reduction was used. FINDINGS: Multiple axial sections were obtained from the acetabulum to the bottom of the foot with no contrast. There is diffuse subcutaneous edema along the left leg. There is narrowing of left hip joint space. T here is acetabular spurring. I see no focal bone destruction. Knee joint is intact. There are calcifi ed uterine fibroids. There is no focal bone destruction. Ankle mortise is anatomic. Knee joint is int act. Tibia and fibula appear intact. I see no fracture. Metatarsals are intact. I see no pathologic s oft tissue fluid collection. IMPRESSION: EXTENSIVE SUBCUTANEOUS EDEMA. OSTEOARTHRITIS IN THE LEFT HIP JOINT. NO FRACTURE SEEN.
[2018-10-02] MEDS ORDERED: HEPARIN SODIUM,PORCINE 5,000 UNIT/ML 1 ML VIAL IV ONE (21:19)
[2018-10-02 21:38] LABS: INR 1.2 (<1.2); Partial Thromboplastin Time 29.8 sec (22.0-30.0); Prothrombin Time 12.3 sec (9.0-12.0)
[2018-10-02] MEDS ORDERED: HYDROcodone/APAP 5-325MG 1 EACH TAB PO PRN (21:46)
[2018-10-02] MEDS ORDERED: NALOXONE 0.4 MG/ML 1 ML VIAL IV PRN (21:46)
[2018-10-02] MEDS ORDERED: FUROSEMIDE 10 MG/ML 4 ML VIAL IV STA (22:51)
[2018-10-03 06:33] LABS: Anisocytosis Slight; Basophils % (A) 0 %; Eosinophils # (A) 0.1 k/uL (0-0.7); Eosinophils % (A) 1 %; HCT 40.6 % (34.0-46.0); HGB 12.9 gm/dL (11.4-16.0); Hypochromasia Marked; Lymphocytes # (A) 0.8 k/uL (1.0-4.8); Lymphocytes % (A) 12 %; MCH 28.6 pg (25.0-35.0); MCHC 31.8 g/dL (31.0-37.0); MCV 89.9 fL (80.0-100.0); Mean Platelet Volume 8.8; Monocytes # (A) 0.4 k/uL (0-1.0); Monocytes % (A) 6 %; Neutrophils # (A) 4.8 k/uL (1.3-7.7); Neutrophils % (A) 78 %; Platelet Count 126 k/uL (150-450); RBC 4.51 m/uL (3.80-5.40); RDW 16.4 % (11.5-15.5); WBC 6.2 k/uL (3.8-10.6)
[2018-10-03] MEDS ORDERED: VANCOMYCIN IV PER PHARMACY 1 EACH MISC MISCELLANE PRN (06:45)
[2018-10-03] MEDS ORDERED: HEPARIN SODIUM,PORCINE 5,000 UNIT/ML 1 ML VIAL IV PRN (07:30)
[2018-10-03] MEDS ORDERED: HEPARIN SOD,PORK IN 0.45% NACL 25,000 UNIT in 0.45% NACL 1 250ML.BAG IV SCH (07:30)
[2018-10-03] MEDS ORDERED: CARVEDILOL 3.125 MG TAB PO SCH (09:00)
[2018-10-03 09:09] LABS: Calcium 8.8 mg/dL (8.4-10.2); Potassium 4.4 mmol/L (3.5-5.1)
--- NOTE | 2018-10-03 10:52 | CONS ---
CONSULTATION This is a 68-year-old female presented to the emergency room with history of bilateral leg swelling and some discomfort. The patient had this for 4 months. She has been admitted because of swelling and some infection in the both lower extremities for IV antibiotics. MEDICAL HISTORY: History of heart failure, hypertension, osteoarthritis, pneumonia, chronic renal disease and skin disorder. PHYSICAL EXAMINATION: Patient was seen in her room. NECK: Supple. Trachea central. Chest has few crackles at the lung bases. ABDOMEN: Soft. Femorals are diminished. Posterior dorsal pedis are not palpable. Patient has a chronic cellulitis with some brawny induration of both lower extremities with some marked swelling of the both lower extremities. The patient has been admitted to Medical Service and also she has a high troponin. Patient has been consulted for cardiac for Cardiology. At this point, patient has a chronic vascular occlusive disease, which the patient will need a outpatient workup. Because the patient has a high BUN and creatinine, they could not do the CTA angiogram. Patient had a Doppler study which will be done and we will re-evaluate and follow with you. Thank you very much for the consultation. MMODL / IJN: [id number] /
--- NOTE | 2018-10-03 12:57 | HP ---
HISTORY AND PHYSICAL CHIEF COMPLAINT: Shortness of breath. HISTORY OF PRESENT ILLNESS: This is another recent admission for this 68-year-old female. 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 She has been doing fairly well the last 3 years, recently started to have more and more difficulty. She was admitted in the hospital recently for shortness of breath and CHF. She came back in because she could not breathe and her renal function started to deteriorate. REVIEW OF SYSTEMS: She has had no headaches, seizures, cough, hemoptysis, chest pain, abdominal pain, etc. Review of systems is otherwise unremarkable. Past medical history, family history personal and social history can be found in detail in her prior hospital and inpatient evaluations and have been unchanged. PHYSICAL EXAMINATION: Blood pressure is 103/64 with a pulse of 80 and irregularly irregular. Respirations were 36. She is afebrile. In general, she appears to be chronically ill and asthenic. Head, ears, eyes, nose, mouth, and throat are normal. The chest demonstrates poor breath sounds throughout with rales scattered about both lung nathan. Cardiac exam demonstrates atrial fibrillation with rapid ventricular response and the abdomen is slightly distended and protuberant. Liver is slightly enlarged. Bowel sounds present. Extremities demonstrated very little edema, but there is cellulitis in both lower legs. Pulses are diminished. Neurologically she is intact. She was admitted to the hospital with diagnoses: ADMISSION DIAGNOSES: 1. Acute congestive heart failure. 2. Chronic congestive heart failure (diastolic and systolic). 3. Chronic renal failure with acute component. PLAN: 1. Bed rest. 2. IV fluids. 3. Consult Cardiology, Nephrology and vascular surgery. MMODL / IJN: [id number] /
--- NOTE | 2018-10-03 13:03 | PN ---
PROGRESS NOTE CHIEF COMPLAINT: Congestive heart failure with renal failure. HISTORY OF PRESENT ILLNESS: This lady continues to be dyspneic. She is extremely weak. PHYSICAL EXAM: Chest demonstrates poor breath sounds with scattered rales. Cardiac exam demonstrates an S3 and S4. IMPRESSION: 1. Acute on chronic congestive heart failure. 2. Alcoholic cardiomyopathy. 3. History of alcoholism. 4. Renal failure. PLAN: Consult Cardiology and Nephrology. MMODL / IJN: [id number] /
--- NOTE | 2018-10-03 13:27 | P.CRDCN ---
History of Present Illness Consult date: 10/03/18 History of present illness: This is a 68-year-old -[place] female with past medical history of severe nonischemic cardiomyopathy, previous heart cath finding normal coronary arteries, moderate pulmonary hypertension, hypertension, hepatitis C. patient was recently seen on September 18 by cardiology when she presented for rectal bleeding. At that time she did have elevated troponins of 0.072, 0.064, 0.059. EKG and monitor strips were showing atrial tachycardia with aberrancy and frequent PVCs. Patient now presents to [facility] emergency center with complaints of lower extremity pain and wounds that has been apparently going on for months but became worse recently. She apparently had EMS to her home 2 days ago and refused to come in the hospital. Patient now presents with significantopen wounds to the lower extremities and loss of pulses distally. Patient underwent CAT scan of the abdomen and pelvis reveals extensive subcutaneous edema. Ascites and right pleural effusion. Fluid could relate to anasarca. Severe cardiomegaly. Heart failure not entirely excluded. Nonobstructive left renal calcification.bilateral lower extremity CAT scan showed extensive subcu and his edema. No fracture seen. No focal bony destructive process.venous Doppler study negative on both legs. Dr. Gomez is on consult for this issue. Patient's troponinshave been 0.051 and 0.058. BUN 57 creatinine 2.39. Patient apparently had increase in her Lasix to 80 mgdaily. Patient denies having any chest pain, shortness of breath. Patient was started on heparin drip, cefepime and vancomycin. EKG will be requested. Review of Systems All systems: negative Constitutional: Denies chills, Denies fatigue, Denies fever, Denies poor appetite, Denies weight loss Eyes: denies blurred vision, denies pain Ears, nose, mouth and throat: Denies dysphagia, Denies headache, Denies sore throat, Denies vertigo Cardiovascular: Reports leg edema, Denies chest pain, Denies edema, Denies shortness of breath, Denies syncope Respiratory: Denies cough, Denies cough with sputum, Denies dyspnea, Denies excessive sputum, Denies hemoptysis, Denies home oxygen, Denies wheezing Gastrointestinal: Denies abdominal pain, Denies bloating, Denies diarrhea, Denies loss of appetite, Denies nausea, Denies vomiting Genitourinary: Denies dysuria, Denies hematuria Musculoskeletal: Denies frequent falls, Denies myalgias Integumentary: Reports color changes, Reports darkening of skin, Reports wounds , Denies pruritus, Denies rash Neurological: Denies numbness, Denies weakness Psychiatric: Denies anxiety, Denies depression Endocrine: Denies fatigue, Denies weight change Past Medical History Past Medical History: Blood Disorder, Heart Failure, Hypertension, Osteoarthritis (OA), Pneumonia, Renal Disease, Skin Disorder Additional Past Medical History / Comment(s): enlarged heart, sickle cell anemia. CHF,cardiomyopathy,pulmonary htn,previously charted Hepatitis C, and renal disease- pt has no knowlege of this History of Any Multi-Drug Resistant Organisms: None Reported Past Surgical History: No Surgical Hx Reported Past Anesthesia/Blood Transfusion Reactions: No Reported Reaction Past Psychological History: No Psychological Hx Reported Smoking Status: Former smoker Past Alcohol Use History: Daily Additional Past Alcohol Use History / Comment(s): patient was a smoker of up to 4 packs per day from the time she was 18 and quit around the age of 58. She also drank alcohol a fifth a day and quit approximately 10 years ago. She is currently living with her son. Past Drug Use History: None Reported - Past Family History Mother Family Medical History: Congestive Heart Failure (CHF) Father Family Medical History: No Reported History Medications and Allergies Home Medications Medication Instructions Recorded Confirmed Type Spironolactone [Aldactone] 25 mg PO DAILY #90 tab 07/19/15 10/02/18 Rx Aspirin [Adult Low Dose Aspirin EC] 81 mg PO DAILY 09/11/17 10/02/18 History Clopidogrel [Plavix] 75 mg PO DAILY 09/11/17 10/02/18 History Losartan [Cozaar] 25 mg PO DAILY 09/11/17 10/02/18 History Carvedilol [Coreg] 3.125 mg PO BID 09/17/18 10/02/18 History Furosemide [Lasix] 80 mg PO DAILY 09/17/18 10/02/18 History Allergies Allergy/AdvReac Type Severity Reaction Status Date / Time latex Allergy Dyspnea Verified 10/02/18 17:35 Penicillins Allergy Rash/Hives Verified 10/02/18 17:35 Physical Exam Vitals: Vital Signs Temp Pulse Pulse Resp BP BP Pulse Ox 10/03/18 08:45 97.6 F 74 16 115/76 98 10/03/18 04:00 97.5 F L 63 15 105/72 100 10/03/18 00:00 97.4 F L 66 15 132/82 100 10/02/18 23:10 97.4 F L 66 18 132/82 100 10/02/18 22:50 97.0 F L 65 20 124/89 100 10/02/18 22:40 64 16 124/89 100 10/02/18 22:30 62 20 124/98 81 L 10/02/18 22:20 65 12 124/98 100 10/02/18 22:10 68 12 124/98 100 10/02/18 22:00 57 L 12 129/88 100 10/02/18 21:50 64 12 129/88 99 10/02/18 21:40 67 11 L 129/88 100 10/02/18 21:30 68 10 L 113/81 10/02/18 21:20 58 L 12 113/81 100 10/02/18 21:10 70 17 113/81 100 10/02/18 21:00 70 10 L 116/93 100 10/02/18 20:50 68 19 116/93 100 10/02/18 20:40 65 12 116/93 100 10/02/18 20:30 64 14 99 10/02/18 20:20 70 18 100 10/02/18 20:00 110/94 10/02/18 19:50 110/94 10/02/18 19:40 80 10 L 110/94 10/02/18 19:30 68 13 112/90 99 10/02/18 19:20 69 20 112/90 76 L 10/02/18 19:10 73 19 112/90 97 10/02/18 19:00 68 10 L 116/85 99 10/02/18 18:50 67 13 116/85 100 10/02/18 18:40 66 20 116/85 100 10/02/18 18:30 65 14 120/83 91 L 10/02/18 18:20 62 18 120/83 100 10/02/18 18:10 20 120/83 82 L 10/02/18 18:01 84 18 104/73 99 10/02/18 18:00 104/87 98 10/02/18 17:58 104/87 90 L 10/02/18 17:00 98.3 F 61 24 113/94 100 Intake and Output 10/02/18 10/03/18 10/03/18 22:59 06:59 14:59 Intake Total 320 220 Output Total 200 300 Balance 320 -200 -80 Intake: Intake, IV Titration 320 Amount Cefepime 1 gm In Sodium 50 Chloride 0.9% 50 ml @ 100 mls/hr IVPB Q24H [facility] Rx# :[id number] Heparin Sod,Pork in 0.45% 0 NaCl 25,000 unit In 0.45 % NaCl 1 250ml.bag @ 12 UNITS/KG/HR 9.52 mls/hr IV .Q24H JAKE Rx#: [id number] Sodium Chloride 0.9% 1, 20 000 ml @ 999 mls/hr IV . Q1H1M ONE Rx#:[id number] Vancomycin 1,250 mg In 250 Sodium Chloride 0.9% 250 ml @ 125 mls/hr IVPB ONCE ONE Rx#:[id number] Oral 220 Output: Urine 200 300 Other: Voiding Method Toilet Diaper # Voids 1 1 Weight 79.379 kg 59.9 kg Gen: This is a 68-year-old -[place] female. She is found ambulating in her room and appears in no acute distress. HEENT: Head is atraumatic, normocephalic. Pupils equal, round. Sclerae is anicteric. NECK: Supple. No JVD. No lymphadenopathy. No thyromegaly. LUNGS: Clear to auscultation. No wheezes or rhonchi. No intercostal retractions. HEART: irregular rate and rhythm. No murmur. ABDOMEN: Soft. Bowel sounds are present. No masses. No tenderness. EXTREMITIES: trace bilateral pedal edemabilaterally. Dark red color changes to the bilateral lower extremity with extreme weeping from both lower legs. NEUROLOGICAL: Patient is awake, alert and oriented x3. Cranial nerves 2 through 12 are grossly intact. Results 10/03/18 05:17 10/03/18 08:05 Cardiac Enzymes 10/02/18 10/02/18 10/02/18 Range/Units 17:26 17:26 23:53 AST 22 (14-36) U/L Troponin I 0.051 H* 0.058 H* (0.000-0.034) ng/mL Coagulation 10/02/18 10/03/18 Range/Units 17:26 05:17 PT 12.3 H (9.0-12.0) sec APTT 29.8 26.4 (22.0-30.0) sec CBC 10/02/18 10/03/18 Range/Units 17:26 05:17 WBC 8.5 6.2 (3.8-10.6) k/uL RBC 4.50 4.51 (3.80-5.40) m/uL Hgb 12.4 12.9 (11.4-16.0) gm/dL Hct 38.9 40.6 (34.0-46.0) % Plt Count 131 L 126 L (150-450) k/uL Comprehensive Metabolic Panel 10/02/18 10/03/18 Range/Units 17:26 08:05 Sodium 141 142 (137-145) mmol/L Potassium 4.7 4.4 (3.5-5.1) mmol/L Chloride 106 108 H (98-107) mmol/L Carbon Dioxide 23 22 (22-30) mmol/L BUN 59 H 57 H (7-17) mg/dL Creatinine 2.44 H 2.39 H (0.52-1.04) mg/dL Glucose 86 166 H (74-99) mg/dL Calcium 8.8 8.8 (8.4-10.2) mg/dL AST 22 (14-36) U/L ALT 19 (9-52) U/L Alkaline Phosphatase 55 (38-126) U/L Total Protein 6.6 (6.3-8.2) g/dL Albumin 3.4 L (3.5-5.0) g/dL Current Medications Generic Name Dose Route Start Last Admin Trade Name Freq PRN Reason Stop Dose Admin Hydrocodone Bitart/Acetaminophen 1 each 10/02/18 21:46 Warren 5-325 PO Q4HR PRN Moderate Pain Carvedilol 3.125 mg 10/03/18 09:00 10/03/18 09:53 Coreg PO 3.125 mg BID JAKE Administration Heparin Sodium (Porcine) 0 unit 10/03/18 07:30 Heparin IV PER PROTOCOL PRN Low PTT Protocol Heparin Sodium/Sodium Chloride 250 mls @ 7.18 mls/hr 10/03/18 07:30 10/03/18 07:21 25,000 unit/ Sodium Chloride IV 12 units/kg/hr .Q24H JAKE 7.18 mls/hr Administration Protocol 12 UNITS/KG/HR Cefepime HCl 1 gm/ Sodium 50 mls @ 100 mls/hr 10/03/18 19:00 Chloride IVPB Q24H JAKE Vancomycin HCl 1,000 mg/ 250 mls @ 125 mls/hr 10/03/18 15:00 Sodium Chloride IVPB 10/03/18 16:59 ONCE ONE Miscellaneous Information 0 each 10/03/18 06:45 Pharmacy To Dose Iv Vancomycin MISCELLANE DIRECTED PRN per protocol Naloxone HCl 0.2 mg 10/02/18 21:46 Narcan IV Q2M PRN Opioid Reversal Intake and Output 10/02/18 10/03/18 10/03/18 22:59 06:59 14:59 Intake Total 320 220 Output Total 200 300 Balance 320 -200 -80 Intake: Intake, IV Titration 320 Amount Cefepime 1 gm In Sodium 50 Chloride 0.9% 50 ml @ 100 mls/hr IVPB Q24H [facility] Rx# :[id number] Heparin Sod,Pork in 0.45% 0 NaCl 25,000 unit In 0.45 % NaCl 1 250ml.bag @ 12 UNITS/KG/HR 9.52 mls/hr IV .Q24H [facility] Rx#: [id number] Sodium Chloride 0.9% 1, 20 000 ml @ 999 mls/hr IV . Q1H1M ONE Rx#:[id number] Vancomycin 1,250 mg In 250 Sodium Chloride 0.9% 250 ml @ 125 mls/hr IVPB ONCE ONE Rx#:[id number] Oral 220 Output: Urine 200 300 Other: Voiding Method Toilet Diaper # Voids 1 1 Weight 79.379 kg 59.9 kg 10/03/18 05:17 10/03/18 08:05 Assessment and Plan Plan: 1. Acute lower lower extremity vascular occlusion. 2. mildly elevated troponins, chronic. 3. Severe nonischemic cardiomyopathy. 4. Moderate pulmonary hypertension. 5. Hypertension. 6. Recent admission for GI bleed. Plan: Troponins are inconsistent with acute coronary syndrome. EKG will be ordered. Heparin drip has not required for cardiac etiology. Thank you kindly for this consultation. There is practitioner note has been reviewed, I agree with the document and findings and plan of care. Patient has been seen and examined
[2018-10-03] MEDS ORDERED: VANCOMYCIN 1,000 MG in SODIUM CHLORIDE 0.9% 250 ML IVPB ONE (15:00)
[2018-10-03] MEDS: CEFEPIME 1 GM in SODIUM CHLORIDE 0.9% 50 ML IVPB SCH (17:50)
--- NOTE | 2018-10-03 23:48 | CONS ---
CONSULTATION REASON FOR CONSULT: Renal failure. HISTORY OF PRESENT ILLNESS: The patient is a 68-year-old female who was admitted to the hospital yesterday with complaints of increased lower extremity swelling and shortness of breath. The patient has also had significant pain in both legs. She denies any prior history of kidney disease. The patient does have a history of sickle cell anemia and hepatitis C. The patient also has underlying cardiomyopathy secondary to ETOH abuse. On admission her creatinine was 2.4 mg/dL. Previous creatinines had been noted to be as around 2.1-2.3 mg/dL all the way back to 2015 in 2013. The blood pressure has been on the lower side with systolic around 99-112 recently. The patient was given Toradol. It appears that she was on Lasix and she is currently on vancomycin. PAST MEDICAL HISTORY: Significant for sickle cell anemia, pneumonia, chronic kidney disease although patient is not aware, hepatitis C, cardiomyopathy, CHF. SOCIAL HISTORY: Patient is a former smoker. No history of drug abuse or alcohol abuse. MEDICATIONS PRIOR TO ADMISSION: 1. Aldactone. 2. Aspirin. 3. Cozaar. 4. Plavix. 5. Coreg. 6. Lasix. ALLERGIES: Include LATEX AND PENICILLIN, which causes rash and hives. REVIEW OF SYSTEMS: As per HPI. Other systems negative. PHYSICAL EXAMINATION: Patient is comfortable. She is not in acute distress. She is alert and oriented x3. Blood pressure this morning was 98/74, heart rate 55 per minute. Patient is afebrile. Examination of the heart S1, S2. Examination lungs bilateral breath sounds are heard. Decreased breath sounds at bases. Abdomen is soft, nontender. Exam of lower extremities shows peeling of the skin, 1+ edema noted bilaterally. The patient is not moving her extremities much. LAB: Show sodium 142, potassium 4.4, chloride 108, BUN 57, serum creatinine 2.39, hemoglobin 12.1 g/dL. Troponin 0.058. UA is not available. ASSESSMENT: 1. Acute kidney injury, most likely cardiorenal, currently nonoliguric. I will check a postvoid residual. Continue off of IV fluids. The patient received a dose of Lasix initially. We can maintain her off of Lasix for now. We will repeat another chest x-ray in a.m. I will obtain a urinalysis. Recommend to change antibiotics from vancomycin to another antibiotic given her renal failure. 2. Chronic kidney disease, etiology unclear. We will obtain UA. Previous UA showed no evidence of protein. There was blood on 09/17/2018. 3. 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 Echocardiogram from 09/18/2018 was available which showed ejection fraction of less than 20% with severely dilated left atrium. 4. Severe pulmonary hypertension. PLAN: Repeat labs in a.m. Decrease Cozaar given the hypotension. Recommend to DC vancomycin. Check urinalysis and check postvoid residual. Thank you for this consultation. We will continue to follow the patient with you during her hospitalization. MMODL / IJN: [id number] /
[2018-10-04 04:45] LABS: Appearance,Urine Cloudy (Clear); Bacteria,Urine Rare /hpf; Bilirubin,Urine Negative (Negative); Blood,Urine Negative (Negative); Color,Urine Yellow; Glucose,Urine (UA) Negative (Negative); Hyaline Casts,Urine 7 /lpf (0-2); Ketones,Urine Negative (Negative); Leukocyte Esterase,Urine Large (Negative); Mucus,Urine Rare /hpf; Nitrite,Urine Negative (Negative); Protein,Urine Negative (Negative); RBC,Urine 3 /hpf (0-5); Specific Gravity,Urine 1.007 (1.001-1.035); Squamous Epithelial Cell,Urine 3 /hpf (0-4); Urobilinogen,Urine <2.0 mg/dL (<2.0); WBC,Urine 54 /hpf (0-5)
[2018-10-04 07:24] LABS: Anisocytosis Slight; Basophils % (A) 0 %; Eosinophils # (A) 0.1 k/uL (0-0.7); Eosinophils % (A) 2 %; HCT 37.8 % (34.0-46.0); HGB 11.6 gm/dL (11.4-16.0); Hypochromasia Slight; Lymphocytes # (A) 0.9 k/uL (1.0-4.8); Lymphocytes % (A) 11 %; MCH 26.7 pg (25.0-35.0); MCHC 30.6 g/dL (31.0-37.0); MCV 87.3 fL (80.0-100.0); Mean Platelet Volume 8.1; Monocytes # (A) 0.5 k/uL (0-1.0); Monocytes % (A) 6 %; Neutrophils # (A) 6.3 k/uL (1.3-7.7); Neutrophils % (A) 79 %; Platelet Count 158 k/uL (150-450); RBC 4.33 m/uL (3.80-5.40); RDW 16.5 % (11.5-15.5); WBC 7.9 k/uL (3.8-10.6)
[2018-10-04 07:54] LABS: Calcium 8.7 mg/dL (8.4-10.2); Potassium 4.4 mmol/L (3.5-5.1)
[2018-10-04 09:23] LABS: Vancomycin,Random 20.7 ug/mL
[2018-10-04] MEDS ORDERED: DEXTROSE 5% IN WATER 250 ML with AMIODARONE 300 MG IV ONE (09:29)
--- NOTE | 2018-10-04 09:59 | P.PN ---
Subjective Progress Note Date: 10/04/18 Seen and examined for the follow-up of chronic kidney disease. Lying comfortable in bed, denies any shortness of breath or chest pain. No nausea vomiting diarrhea. Objective - Vital Signs Vital signs: Vital Signs Temp 98.1 F 10/04/18 08:25 Pulse 162 H 10/04/18 08:25 Resp 16 10/04/18 08:25 BP 98/78 10/04/18 08:25 Pulse Ox 98 10/04/18 08:25 Intake & Output 10/03/18 10/04/18 10/04/18 18:59 06:59 18:59 Intake Total 440 720 Output Total 300 237 Balance 140 483 Intake: Oral 440 720 Output: Urine 300 100 Post Void Residual 137 Other: Voiding Method Toilet Diaper Diaper # Voids 3 1 - Exam No acute distress S1-S2 heard Lungs clear Edema - Labs CBC & Chem 7: 10/04/18 05:30 10/04/18 05:30 Labs: Abnormal Lab Results - Last 24 Hours (Table) 10/04/18 10/04/18 10/04/18 Range/Units 04:30 05:30 05:30 MCHC 30.6 L (31.0-37.0) g/dL RDW 16.5 H (11.5-15.5) % Lymphocytes # 0.9 L (1.0-4.8) k/uL Chloride 108 H (98-107) mmol/L BUN 55 H (7-17) mg/dL Creatinine 2.28 H (0.52-1.04) mg/dL Glucose 106 H (74-99) mg/dL Urine Appearance Cloudy H (Clear) Ur Leukocyte Esterase Large H (Negative) Urine WBC 54 H (0-5) /hpf Urine Bacteria Rare H (None) /hpf Hyaline Casts 7 H (0-2) /lpf Urine Mucus Rare H (None) /hpf Assessment and Plan Assessment: #1 chronic kidney disease stage IV secondary to nephrosclerosis and type to cardiorenal syndrome. Baseline creatinine 2.1-2.3 MG per DL. #2 CHF with systolic dysfunction EF of less than 20%. #3 abnormal UA #4 low normal blood pressure. #5 atrial fibrillation Plan: #1 renal function stable currently at baseline. #2 restart back on her diuretics. Start her on torsemide 40 mg by mouth daily. #3 currently not on any antihypertensive agents continue to hold Cozaar and Aldactone for now. #4 avoid nephrotoxic agents and hypotensive episodes #5 repeat labs in the morning #6 discontinue vancomycin if no clinical indication. If needed maintain trough levels less than 20.
[2018-10-04] MEDS ORDERED: DEXTROSE 5% IN WATER 100 ML with AMIODARONE 150 MG IV ONE (10:43)
[2018-10-04] MEDS: ASPIRIN 81 MG PO SCH (11:03)
[2018-10-04] MEDS: CLOPIDOGREL 75 MG TAB PO SCH (11:03)
[2018-10-04] MEDS: CARVEDILOL 3.125 MG TAB PO SCH ×2 (11:03→17:29)
[2018-10-04] MEDS: AMIODARONE 450 MG in DEXTROSE 5% IN WATER 250 ML IV SCH ×2 (14:09)
[2018-10-04] MEDS: TORSEMIDE 20 MG TAB PO SCH (14:27)
--- NOTE | 2018-10-04 14:48 | P.PN ---
Subjective Progress Note Date: 10/04/18 This is a 68-year-old -[place] female with severe nonischemic cardiomyopathy, moderate pulmonary hypertension and also hepatitis C, was admitted to the hospital with complaints of lower extremity pain and wounds which have become worse recently. Patient underwent computed tomography scan of the abdomen and pelvis which revealed extensive subcutaneous edema. Patient is being value today vascular surgery for peripheral vascular disease. She is also on antibiotics. Patient is comfortable and resting in bed without any difficulties. Patient did developed tachycardia in the range of 120 to 130 , which appeared to be junctional tachycardia. The possibility of atrial flutter or atrial tachycardia cannot be excluded. Patient was started on IV amiodarone. Patient heart rate has come down. Patient is otherwise stable. Patient also has developed prerenal failure and some oliguria. Patient is being followed by nephrology Objective - Vital Signs Vital signs: Vital Signs Temp 98.1 F 10/04/18 08:25 Pulse 70 10/04/18 14:32 Resp 16 10/04/18 14:32 BP 101/59 10/04/18 14:32 Pulse Ox 97 10/04/18 14:32 Intake & Output 10/03/18 10/04/18 10/04/18 18:59 06:59 18:59 Intake Total 440 720 222 Output Total 300 237 Balance 140 483 222 Weight 59.9 kg Intake: Oral 440 720 222 Output: Urine 300 100 Post Void Residual 137 Other: Voiding Method Toilet Diaper Diaper Diaper # Voids 3 1 2 - Exam GENERAL EXAM: Patient is alert and oriented and appears frail but in no acute distress HEENT: Normocephalic. Normal reaction of pupils, equal size, normal range of extraocular motion. No erythema or exudates in the throat. NECK: No masses, no nuchal rigidity. CHEST: No chest wall deformity. LUNGS: Diminished breath sounds HEART: S1 and S2 normal ws.. ABDOMEN: No hepatosplenomegaly, normal bowel sounds, no guarding or rigidity. SKIN: No rashes CENTRAL NERVOUS SYSTEM: No focal deficits. EXTREMITIES: Diffuse ulceration - Labs CBC & Chem 7: 10/04/18 05:30 10/04/18 05:30 Labs: Abnormal Lab Results - Last 24 Hours (Table) 10/04/18 10/04/18 10/04/18 Range/Units 04:30 05:30 05:30 MCHC 30.6 L (31.0-37.0) g/dL RDW 16.5 H (11.5-15.5) % Lymphocytes # 0.9 L (1.0-4.8) k/uL Chloride 108 H (98-107) mmol/L BUN 55 H (7-17) mg/dL Creatinine 2.28 H (0.52-1.04) mg/dL Glucose 106 H (74-99) mg/dL Urine Appearance Cloudy H (Clear) Ur Leukocyte Esterase Large H (Negative) Urine WBC 54 H (0-5) /hpf Urine Bacteria Rare H (None) /hpf Hyaline Casts 7 H (0-2) /lpf Urine Mucus Rare H (None) /hpf Microbiology - Last 24 Hours (Table) 10/03/18 08:05 Blood Culture - Preliminary Blood No Growth after 24 hours Assessment and Plan (1) Elevated troponin Current Visit: Yes Status: Acute Code(s): R74.8 - ABNORMAL LEVELS OF OTHER SERUM ENZYMES SNOMED Code(s): 137436403 (2) CHF exacerbation Current Visit: Yes Status: Acute Code(s): I50.9 - HEART FAILURE, UNSPECIFIED SNOMED Code(s): 75787160 (3) Cardiorenal syndrome Current Visit: Yes Status: Acute Code(s): I13.10 - HYP HRT & CHR KDNY DIS W/ O HRT FAIL, W STG 1-4/UNSP CHR KDNY SNOMED Code(s): 011518253 (4) Cellulitis Current Visit: Yes Status: Acute Code(s): L03.90 - CELLULITIS, UNSPECIFIED SNOMED Code(s): 118152037 (5) SVT (supraventricular tachycardia) Current Visit: Yes Status: Acute Code(s): I47.1 - SUPRAVENTRICULAR TACHYCARDIA SNOMED Code(s): 7183834 Plan: Continue current management. I will also start her on IV amiodarone. Further recommendations depend upon clinical course
[2018-10-04] MEDS: CEFEPIME 1 GM in SODIUM CHLORIDE 0.9% 50 ML IVPB SCH (18:05)
--- NOTE | 2018-10-04 21:02 | PN ---
PROGRESS NOTE CHIEF COMPLAINT: Congestive heart failure, renal failure, cardiomyopathy, hepatitis C, and arrhythmia. HISTORY OF PRESENT ILLNESS: This lady is holding her own, but not doing well at all. Renal function is not improving. She is being followed by [facility] and she has been placed on amiodarone for the runs of PVCs. She seems to be awake and alert. She is not complaining of any pain, shortness of breath, etc. PHYSICAL EXAM: Breath sounds are heard bilaterally. Cardiac exam demonstrates sinus rhythm. The abdomen is soft. The extremities demonstrate the persistence of her dry, scaly, slightly inflammatory rash of unknown cause. IMPRESSION: 1. Chronic congestive heart failure. 2. Acute congestive heart failure. 3. Alcoholic cardiomyopathy. 4. Renal failure. 5. Arrhythmia, premature ventricular contractions. 6. Hepatitis C with cirrhosis. PLAN: Continue efforts to try to control her congestive heart failure and hope that her renal function will improve. MMODL / IJN: [id number] /
[2018-10-05] MEDS: AMIODARONE 450 MG in DEXTROSE 5% IN WATER 250 ML IV SCH ×6 (00:03→13:03)
[2018-10-05] MEDS: CARVEDILOL 3.125 MG TAB PO SCH (06:35)
[2018-10-05 06:52] LABS: Anisocytosis Slight; Basophils % (A) 0 %; Eosinophils # (A) 0.1 k/uL (0-0.7); Eosinophils % (A) 1 %; HCT 37.8 % (34.0-46.0); HGB 11.6 gm/dL (11.4-16.0); Hypochromasia Slight; Lymphocytes % (A) 12 %; MCH 26.6 pg (25.0-35.0); MCHC 30.7 g/dL (31.0-37.0); MCV 86.9 fL (80.0-100.0); Monocytes # (A) 0.5 k/uL (0-1.0); Monocytes % (A) 6 %; Neutrophils # (A) 6.4 k/uL (1.3-7.7); Neutrophils % (A) 78 %; Platelet Count 164 k/uL (150-450); RBC 4.35 m/uL (3.80-5.40); RDW 16.2 % (11.5-15.5); WBC 8.2 k/uL (3.8-10.6)
[2018-10-05 07:13] LABS: Calcium 8.6 mg/dL (8.4-10.2); Potassium 4.8 mmol/L (3.5-5.1)
[2018-10-05] MEDS: ASPIRIN 81 MG PO SCH (08:39)
[2018-10-05] MEDS: CLOPIDOGREL 75 MG TAB PO SCH (08:39)
[2018-10-05] MEDS: TORSEMIDE 20 MG TAB PO SCH (08:40)
--- NOTE | 2018-10-05 10:14 | P.PN ---
Subjective Progress Note Date: 10/05/18 Seen and examined for the follow-up of chronic kidney disease. Lying comfortable in bed, denies any shortness of breath or chest pain. No nausea vomiting diarrhea. Objective - Vital Signs Vital signs: Vital Signs Temp 98.2 F 10/05/18 08:00 Pulse 63 10/05/18 08:00 Resp 18 10/05/18 08:00 BP 110/62 10/05/18 08:00 Pulse Ox 96 10/05/18 08:00 Intake & Output 10/04/18 10/05/18 10/05/18 18:59 06:59 18:59 Intake Total 222 250.000 366.109 Balance 222 250.000 366.109 Weight 59.9 kg 593 kg Intake: Intake, IV Titration 250.000 144.109 Amount Amiodarone 450 mg In 250.000 144.109 Dextrose 5% in Water 250 ml @ 1 MG/MIN 33.33 mls/ hr IV .Q7H31M [facility] Rx#: [id number] Oral 222 222 Other: Voiding Method Diaper Diaper Diaper # Voids 2 0 - Exam No acute distress S1-S2 heard Lungs clear no Edema - Labs CBC & Chem 7: 10/05/18 05:30 10/05/18 05:30 Labs: Abnormal Lab Results - Last 24 Hours (Table) 10/05/18 10/05/18 Range/Units 05:30 05:30 MCHC 30.7 L (31.0-37.0) g/dL RDW 16.2 H (11.5-15.5) % Chloride 108 H (98-107) mmol/L Carbon Dioxide 21 L (22-30) mmol/L BUN 54 H (7-17) mg/dL Creatinine 2.11 H (0.52-1.04) mg/dL Microbiology - Last 24 Hours (Table) 10/03/18 08:05 Blood Culture - Preliminary Blood No Growth after 24 hours Assessment and Plan Assessment: #1 chronic kidney disease stage IV secondary to nephrosclerosis and type to cardiorenal syndrome. Baseline creatinine 2.1-2.3 MG per DL. #2 CHF with systolic dysfunction EF of less than 20%. #3 abnormal UA #4 low normal blood pressure. #5 atrial fibrillation Plan: #1 renal function stable currently at baseline. #2 restart back on torsemide 40 mg by mouth daily. #3 currently not on any antihypertensive agents continue to hold Cozaar and Aldactone for now. #4 avoid nephrotoxic agents and hypotensive episodes #5 repeat labs in the morning #6 discontinue vancomycin if no clinical indication. If needed maintain trough levels less than 20.
--- NOTE | 2018-10-05 12:49 | P.PN ---
Subjective Progress Note Date: 10/05/18 This is a 68-year-old -[place] female with severe nonischemic cardiomyopathy, moderate pulmonary hypertension and also hepatitis C, was admitted to the hospital with complaints of lower extremity pain and wounds which have become worse recently. Patient underwent computed tomography scan of the abdomen and pelvis which revealed extensive subcutaneous edema. Patient is being value today vascular surgery for peripheral vascular disease. She is also on antibiotics. Patient is comfortable and resting in bed without any difficulties. Patient did developed tachycardia in the range of 120 to 130 , which appeared to be junctional tachycardia. The possibility of atrial flutter or atrial tachycardia cannot be excluded. Patient was started on IV amiodarone. Patient heart rate has come down. Patient is otherwise stable. Patient also has developed prerenal failure and some oliguria. Patient is being followed by nephrology. 10/05/2018: This 68-year-old female with history of nonischemic heart myopathy is admitted to the hospital mainly with the lower extremity pain associated with ulcers and wounds. Patient being followed by vascular surgeons. Yesterday patient had junctional rhythm injection of tachycardia. She was treated with IV amiodarone bolus and drip. She converted back to sinus rhythm and maintaining sinus rhythm. Her creatinine is 2.11 with a BUN of 54. White count is normal. Hemoglobin is 11.6. She is complaints of vague chest pain but doesn't appear to be acute distress. From Cardec standpoint we'll continue current medical therapy. Patient is currently on Coreg 3.125 mg by mouth twice a day, Demadex 40 mg daily and aspirin. His blood pressure remained stable, may consider adding hydralazine and Imdur Objective - Vital Signs Vital signs: Vital Signs Temp 97.1 F L 10/05/18 12:00 Pulse 66 10/05/18 12:00 Resp 16 10/05/18 12:00 BP 102/65 10/05/18 12:00 Pulse Ox 98 10/05/18 12:00 Intake & Output 10/04/18 10/05/18 10/05/18 18:59 06:59 18:59 Intake Total 222 250.000 366.109 Balance 222 250.000 366.109 Weight 59.9 kg 593 kg Intake: Intake, IV Titration 250.000 144.109 Amount Amiodarone 450 mg In 250.000 144.109 Dextrose 5% in Water 250 ml @ 1 MG/MIN 33.33 mls/ hr IV .Q7H31M [facility] Rx#: [id number] Oral 222 222 Other: Voiding Method Diaper Diaper Diaper # Voids 2 0 - Exam GENERAL EXAM: Patient is alert and oriented and appears frail but in no acute distress HEENT: Normocephalic. Normal reaction of pupils, equal size, normal range of extraocular motion. No erythema or exudates in the throat. NECK: No masses, no nuchal rigidity. CHEST: No chest wall deformity. LUNGS: Diminished breath sounds HEART: S1 and S2 normal ws.. ABDOMEN: No hepatosplenomegaly, normal bowel sounds, no guarding or rigidity. SKIN: No rashes CENTRAL NERVOUS SYSTEM: No focal deficits. EXTREMITIES: Diffuse ulceration - Labs CBC & Chem 7: 10/05/18 05:30 10/05/18 05:30 Labs: Abnormal Lab Results - Last 24 Hours (Table) 10/05/18 10/05/18 Range/Units 05:30 05:30 MCHC 30.7 L (31.0-37.0) g/dL RDW 16.2 H (11.5-15.5) % Chloride 108 H (98-107) mmol/L Carbon Dioxide 21 L (22-30) mmol/L BUN 54 H (7-17) mg/dL Creatinine 2.11 H (0.52-1.04) mg/dL Microbiology - Last 24 Hours (Table) 10/03/18 08:05 Blood Culture - Preliminary Blood No Growth after 48 hours Assessment and Plan (1) Elevated troponin Current Visit: Yes Status: Acute Code(s): R74.8 - ABNORMAL LEVELS OF OTHER SERUM ENZYMES SNOMED Code(s): 595952830 (2) CHF exacerbation Current Visit: Yes Status: Acute Code(s): I50.9 - HEART FAILURE, UNSPECIFIED SNOMED Code(s): 37916803 (3) Cardiorenal syndrome Current Visit: Yes Status: Acute Code(s): I13.10 - HYP HRT & CHR KDNY DIS W/ O HRT FAIL, W STG 1-4/UNSP CHR KDNY SNOMED Code(s): 469328529 (4) Cellulitis Current Visit: Yes Status: Acute Code(s): L03.90 - CELLULITIS, UNSPECIFIED SNOMED Code(s): 823728333 (5) SVT (supraventricular tachycardia) Current Visit: Yes Status: Acute Code(s): I47.1 - SUPRAVENTRICULAR TACHYCARDIA SNOMED Code(s): 0238517 Plan: Patient appears to be clinically stable. Her blood pressures in the range of 100 systolic. She is maintaining sinus rhythm. If blood pressure remains stable, may add hydralazine and Imdur. Nephrology is following for her renal failure
[2018-10-05] MEDS: CARVEDILOL 6.25 MG TAB PO SCH (17:24)
[2018-10-05] MEDS: CEFEPIME 1 GM in SODIUM CHLORIDE 0.9% 50 ML IVPB SCH (18:54)
[2018-10-06] MEDS: CARVEDILOL 6.25 MG TAB PO SCH ×2 (05:51→17:51)
[2018-10-06 06:58] LABS: Anisocytosis Slight; Basophils % (A) 0 %; Eosinophils # (A) 0.1 k/uL (0-0.7); Eosinophils % (A) 1 %; HCT 40.8 % (34.0-46.0); HGB 12.6 gm/dL (11.4-16.0); Hypochromasia Slight; Lymphocytes % (A) 9 %; MCH 26.9 pg (25.0-35.0); MCHC 30.9 g/dL (31.0-37.0); Monocytes # (A) 0.5 k/uL (0-1.0); Monocytes % (A) 5 %; Neutrophils # (A) 9.2 k/uL (1.3-7.7); Neutrophils % (A) 84 %; Platelet Count 193 k/uL (150-450); RBC 4.69 m/uL (3.80-5.40); RDW 16.1 % (11.5-15.5); WBC 10.9 k/uL (3.8-10.6)
[2018-10-06 07:24] LABS: Calcium 8.6 mg/dL (8.4-10.2); Potassium 4.5 mmol/L (3.5-5.1)
[2018-10-06] MEDS: CLOPIDOGREL 75 MG TAB PO SCH (08:13)
[2018-10-06] MEDS: TORSEMIDE 20 MG TAB PO SCH (08:13)
[2018-10-06] MEDS: ASPIRIN 81 MG PO SCH (08:13)
--- NOTE | 2018-10-06 09:16 | P.PN ---
Progress Note - Text Patient lying comfortably in bed. Known nonischemic myopathy, pulmonary hypertension, hepatitis C admitted with lower extremity pain and wounds Developed an atrial tachycardia for which IV amiodarone was prescribed did he is back in sinus rhythm Blood pressure 123/63 mmHg pulse rate in the 70s temperature 100F Breath sounds are reduced bilaterally Heart sounds were S2 are soft. Abdomen soft Bilateral lower symmetry edema Labs reviewed white count 10.9 hemoglobin 12.6 at lites normal BUN 54 creatinine 2.18 Suggest Continue current medications, continue aspirin carvedilol Plavix and Demadex
--- NOTE | 2018-10-06 10:26 | P.PN ---
Subjective Patient is seen in follow-up for acute kidney injury on chronic kidney disease. Patient has chronic kidney disease stage IV with baseline creatinine in the range of 2.1-2.3. GFR is at baseline. Patient is maintained on torsemide 40 mg daily. She has ejection fraction of less than 20%. No vomiting or diarrhea. Oral intake is fair. Vital signs are stable. General: The patient appeared well nourished and normally developed. HEENT: Head exam is unremarkable. Neck is without jugular venous distension. LUNGS: Lungs are clear to auscultation and percussion. Breath sounds decreased. HEART: Rate and Rhythm are regular. First and second heart sounds normal. No murmurs, rubs or gallops. ABDOMEN: Abdominal exam reveals normal bowel sounds. Non-tender and non- distended. No evidence of peritonitis. EXTREMITITES: No clubbing, cyanosis, or edema. Objective - Vital Signs Vital signs: Vital Signs Temp 100 F H 10/06/18 07:31 Pulse 72 10/06/18 07:31 Resp 16 10/06/18 07:31 BP 123/63 10/06/18 07:31 Pulse Ox 97 10/06/18 07:31 Intake & Output 10/05/18 10/06/18 10/06/18 18:59 06:59 18:59 Intake Total 826.109 120 60 Balance 826.109 120 60 Weight 57.2 kg Intake: Intake, IV Titration 244.109 Amount Amiodarone 450 mg In 144.109 Dextrose 5% in Water 250 ml @ 1 MG/MIN 33.33 mls/ hr IV .Q7H31M [facility] Rx#: [id number] Cefepime 1 gm In Sodium 100 Chloride 0.9% 50 ml @ 100 mls/hr IVPB Q24H [facility] Rx# :[id number] Oral 582 120 60 Other: Voiding Method Diaper Diaper Diaper # Voids 1 # Bowel Movements 1 - Labs CBC & Chem 7: 10/06/18 05:26 10/06/18 05:26 Labs: Abnormal Lab Results - Last 24 Hours (Table) 10/06/18 10/06/18 Range/Units 05:26 05:26 WBC 10.9 H (3.8-10.6) k/uL MCHC 30.9 L (31.0-37.0) g/dL RDW 16.1 H (11.5-15.5) % Neutrophils # 9.2 H (1.3-7.7) k/uL BUN 54 H (7-17) mg/dL Creatinine 2.18 H (0.52-1.04) mg/dL Glucose 110 H (74-99) mg/dL Microbiology - Last 24 Hours (Table) 10/03/18 08:05 Blood Culture - Preliminary Blood No Growth after 48 hours Assessment and Plan Plan: Assessment: 1. Chronic kidney disease stage IV secondary to nephrosclerosis and cardiorenal syndrome. Baseline creatinine 2.1-2.3. Currently at baseline. 2. Systolic CHF with ejection fraction of less than 20%. 3. Atrial fibrillation. Maintain on Coreg. Rate controlled. 4. Chronic hypotension related to underlying cardiac status. Plan: Maintain torsemide 40 mg daily. Encouraged oral intake. Avoid nephrotoxins.
--- NOTE | 2018-10-06 11:16 | CDI ---
Documentation Clarification Form Date: 10/06/2018 11:11:23 AM From: Shruthi KATE Domínguez, CCDS Admit Date: 10/02/2018 10:17:00 PM Patient Name: Jude Wall Visit Number: [id number] Discharge Date: ATTENTION: The Clinical Documentation Specialists (CDI) and [facility] Coding Staff appreciate your assistance in clarifying documentation. Please respond to the clarification below the line at the bottom and electronically sign. The CDI & [facility] Coding staff will review the response and follow-up if needed. Please note: Queries are made part of the Legal Health Record. If you have any questions, please contact the author of this message via ITS. Dr. Arik Perez: Per the 10/04 cardiology progress note: "The possibility of atrial flutter or atrial tachycardia cannot be excluded.Patient was started on IV amiodarone." History/Risk factors: Combined systolic & diastolic CHF, CKD IV, Pulmonary hypertension, Sickle Cell anemia, Hep C & alcohol abuse. Clinical Indicators: Presented with SOB, diagnosed with Acute on Chronic combined CHF & bilateral lower extremity cellulitis. EKG/telemetry: R 77 sinus rhythm w/fusion compleses, anterolateral infarct, age undetermined. Treatment: IV Heparin, IV Ms, IV Toradol, IV Cefepime, IV fluid bolus, IV Vanco. In your professional opinion, in order to capture the severity of condition; can you please clarify the type of Atrial Flutter if known? Typical/Type I Atypical/Type II Other, please specify Unable to determine Ruled out (Last Revision: January 2018) Unable to determine MTDD
--- NOTE | 2018-10-06 11:22 | CDI ---
Documentation Clarification Form Date: 10/06/2018 11:17:26 AM From: Shruthi KATE Domínguez, CCDS Admit Date: 10/02/2018 10:17:00 PM Patient Name: Jude Wall Visit Number: [id number] Discharge Date: ATTENTION: The Clinical Documentation Specialists (CDI) and [facility] Coding Staff appreciate your assistance in clarifying documentation. Please respond to the clarification below the line at the bottom and electronically sign. The CDI & [facility] Coding staff will review the response and follow-up if needed. Please note: Queries are made part of the Legal Health Record. If you have any questions, please contact the author of this message via ITS. Dr. Arik Perez: Atrial Fibrillation is documented in the History & Physical and also the nephrology notes as atrial fibrillation w/RVR. History/Risk Factors: Combined systolic CHF, Sickle Cell anemia, Pulmonary hypertension, Hep C w/cirrhosis & alcohol abuse. Clinical Indicators: Presented with SOB, lower leg swelling & bilateral lower extremity cellulitis. EKG/telemetry: R 77 Sinus rhythm w/fusion complexes. Treatment: IV Heparin, IV antibiotics, IV fluid bolus Consults: Nephrology (cardiorenal syndrome), Vascular Surgery (bilateral lower extremity swelling, cellulitis & occlusion) & Cardiology (elevated troponins & atrial fibrillation) In your professional opinion, can you please clarify the type of Atrial Fibrillation, if known? Chronic/Permanent Paroxysmal Persistent Other, please specify Unable to determine Ruled out (Last Revision: January 2018) __Unable to determine MTDD
[2018-10-06] MEDS: AMIODARONE 200 MG TAB PO SCH ×2 (12:20→21:42)
--- NOTE | 2018-10-06 17:46 | PN ---
PROGRESS NOTE DATE OF SERVICE: 10/05/2018. CHIEF COMPLAINT: Atrial fibrillation, congestive heart failure. HISTORY OF PRESENT ILLNESS: This lady is a doing just about the same. Renal function has been fairly stable. She is not complaining of any significant shortness of breath, but she is extremely weak and can move about a great deal. PHYSICAL EXAM: Skin is dry. Breath sounds are diminished bilaterally but chest is fairly clear. Cardiac exam is unchanged and the abdomen is flat. Extremities are normal. Her dry, scaly, slightly inflamed dermatitis persist. IMPRESSION: 1. Acute and chronic congestive heart failure. 2. Alcoholic cardiomyopathy. 3. Alcoholism. 4. Cirrhosis. 5. Hepatitis C. 6. Renal failure. PLAN: No change in program and continue to monitor. She is progressing very little. MMODL / IJN: [id number] /
[2018-10-06] MEDS: CEFEPIME 1 GM in SODIUM CHLORIDE 0.9% 50 ML IVPB SCH (17:53)
[2018-10-07] MEDS: CARVEDILOL 6.25 MG TAB PO SCH ×2 (06:09→17:04)
[2018-10-07 06:15] LABS: Basophils % (A) 0 %; Eosinophils # (A) 0.1 k/uL (0-0.7); Eosinophils % (A) 1 %; HCT 41.6 % (34.0-46.0); HGB 12.6 gm/dL (11.4-16.0); Hypochromasia Slight; Lymphocytes # (A) 1.1 k/uL (1.0-4.8); Lymphocytes % (A) 9 %; MCH 26.3 pg (25.0-35.0); MCHC 30.3 g/dL (31.0-37.0); MCV 86.6 fL (80.0-100.0); Mean Platelet Volume 7.8; Monocytes # (A) 0.5 k/uL (0-1.0); Monocytes % (A) 4 %; Neutrophils # (A) 10.6 k/uL (1.3-7.7); Neutrophils % (A) 85 %; Platelet Count 203 k/uL (150-450); RBC 4.81 m/uL (3.80-5.40); WBC 12.5 k/uL (3.8-10.6)
[2018-10-07 06:30] LABS: Calcium 8.5 mg/dL (8.4-10.2); Magnesium 1.9 mg/dL (1.6-2.3); Potassium 4.9 mmol/L (3.5-5.1)
[2018-10-07] MEDS: TORSEMIDE 20 MG TAB PO SCH (08:38)
[2018-10-07] MEDS: AMIODARONE 200 MG TAB PO SCH ×2 (08:38→19:55)
[2018-10-07] MEDS: CLOPIDOGREL 75 MG TAB PO SCH (08:38)
[2018-10-07] MEDS: ASPIRIN 81 MG PO SCH (08:38)
--- NOTE | 2018-10-07 08:50 | PN ---
PROGRESS NOTE CHIEF COMPLAINT: 1. Chronic congestive heart failure. 2. Congestive heart failure. 3. Chronic obstructive pulmonary disease. 4. Cirrhosis. 5. Hepatitis C. 6. Renal failure. HISTORY OF PRESENT ILLNESS: This lady is just about the same. She is not responding well at all. She has had a low-grade temp during the day. Kidney function is staying about the same. PHYSICAL EXAM: She remains very dehydrated. She is awake and alert. Breath sounds are clear bilaterally. The cardiac exam demonstrates tachycardia and the abdomen is soft. Extremities are unchanged. IMPRESSION: 1. Acute and chronic congestive heart failure. 2. Alcoholic cardiomyopathy. 3. Chronic obstructive pulmonary disease. 4. Hepatitis C. 5. Renal failure. 6. Possible sepsis. PLAN: Continue with current management and await to see if her renal function improves. MMODL / IJN: [id number] /
--- NOTE | 2018-10-07 10:13 | P.PN ---
Subjective Patient is seen in follow-up for acute kidney injury on chronic kidney disease. Patient has chronic kidney disease stage IV with baseline creatinine in the range of 2.1-2.3. GFR is at baseline. Patient is maintained on torsemide 40 mg daily. She has ejection fraction of less than 20%. No vomiting or diarrhea. Oral intake is fair. No active complaints at this time. Vital signs are stable. General: The patient appeared well nourished and normally developed. HEENT: Head exam is unremarkable. Neck is without jugular venous distension. LUNGS: Lungs are clear to auscultation and percussion. Breath sounds decreased. HEART: Rate and Rhythm are regular. First and second heart sounds normal. No murmurs, rubs or gallops. ABDOMEN: Abdominal exam reveals normal bowel sounds. Non-tender and non- distended. No evidence of peritonitis. EXTREMITITES: No clubbing, cyanosis, or edema. Objective - Vital Signs Vital signs: Vital Signs Temp 98.4 F 10/07/18 03:44 Pulse 72 10/07/18 03:44 Resp 19 10/07/18 03:44 BP 103/73 10/07/18 03:44 Pulse Ox 100 10/07/18 03:44 Intake & Output 10/06/18 10/07/18 10/07/18 18:59 06:59 18:59 Intake Total 420 355 240 Balance 420 355 240 Weight 55.5 kg Intake: Oral 420 355 240 Other: Voiding Method Diaper Diaper # Voids 1 1 # Bowel Movements 1 - Labs CBC & Chem 7: 10/07/18 05:21 10/07/18 05:21 Labs: Abnormal Lab Results - Last 24 Hours (Table) 10/07/18 10/07/18 Range/Units 05:21 05:21 WBC 12.5 H (3.8-10.6) k/uL MCHC 30.3 L (31.0-37.0) g/dL RDW 16.0 H (11.5-15.5) % Neutrophils # 10.6 H (1.3-7.7) k/uL BUN 52 H (7-17) mg/dL Creatinine 2.12 H (0.52-1.04) mg/dL Glucose 110 H (74-99) mg/dL Microbiology - Last 24 Hours (Table) 10/03/18 08:05 Blood Culture - Preliminary Blood No Growth after 72 hours Assessment and Plan Plan: Assessment: 1. Chronic kidney disease stage IV secondary to nephrosclerosis and cardiorenal syndrome. Baseline creatinine 2.1-2.3. Currently at baseline. 2. Systolic CHF with ejection fraction of less than 20%. 3. Atrial fibrillation. Maintain on Coreg. Rate controlled. 4. Chronic hypotension related to underlying cardiac status. Plan: Maintain torsemide 40 mg daily. Encouraged oral intake. Avoid nephrotoxins. Stable for discharge from nephrology standpoint. Follow up outpatient in the next 2 weeks.
--- NOTE | 2018-10-07 11:55 | P.PN ---
Progress Note - Text Patient is resting comfortably in bed. Although she is not short of breath she does have bilateral rhonchi scattered all over the lung nathan No chest discomfort no dizziness lightheadedness Blood pressure 103/73 mmHg pulse rate in the 70s afebrile Breath sounds are reduced bilaterally with scattered rhonchi bilaterally Heart sounds are soft no murmurs Abdomen soft nontender External is warm no edema Impression History of paroxysmal atrial tachycardia currently in sinus rhythm Suggest Continue current medications without any changes and I will see her on a when necessary basis now
[2018-10-07] MEDS: CEFEPIME 1 GM in SODIUM CHLORIDE 0.9% 50 ML IVPB SCH (17:04)
[2018-10-07] MEDS ORDERED: FUROSEMIDE 10 MG/ML 2 ML VIAL IV STA (18:31)
--- NOTE | 2018-10-07 18:50 | PN ---
PROGRESS NOTE DATE OF SERVICE: 10/07/2018 CHIEF COMPLAINTS: 1. Acute on chronic congestive heart failure. 2. Renal failure. 3. COPD. 4. Hepatitis C. HISTORY OF PRESENT ILLNESS: This lady continues to be just about the same. Renal function is about the same. She is not having any more or less difficulty breathing. She is not eating well. PHYSICAL EXAMINATION: She is dry. Her chest demonstrates decreased breath sounds on both sides. Cardiac exam is unchanged. The abdomen is flat and soft. Extremities are unchanged. IMPRESSION: 1. Congestive heart failure. 2. Chronic obstructive pulmonary disease. 3. Renal failure. 4. Hepatitis C. 5. History of alcoholism. PLAN: She continues to be more or less stable. At this time, discharge planning will have to be considered and planned. KMI / NELL: [id number] /
[2018-10-08] MEDS: CARVEDILOL 6.25 MG TAB PO SCH ×2 (06:09→16:41)
[2018-10-08 06:43] LABS: Basophils % (A) 0 %; Eosinophils # (A) 0.2 k/uL (0-0.7); Eosinophils % (A) 2 %; HGB 11.9 gm/dL (11.4-16.0); Hypochromasia Slight; Lymphocytes # (A) 0.9 k/uL (1.0-4.8); Lymphocytes % (A) 9 %; MCH 26.6 pg (25.0-35.0); MCHC 30.4 g/dL (31.0-37.0); MCV 87.3 fL (80.0-100.0); Mean Platelet Volume 7.3; Monocytes # (A) 0.4 k/uL (0-1.0); Monocytes % (A) 4 %; Neutrophils # (A) 7.5 k/uL (1.3-7.7); Neutrophils % (A) 82 %; Platelet Count 194 k/uL (150-450); RBC 4.47 m/uL (3.80-5.40); RDW 15.9 % (11.5-15.5); WBC 9.1 k/uL (3.8-10.6)
[2018-10-08 06:59] LABS: Calcium 8.5 mg/dL (8.4-10.2); Potassium 4.8 mmol/L (3.5-5.1)
[2018-10-08] MEDS: IPRATROPIUM-ALBUTEROL 3 ML NEB INHALATION PRN (07:44)
--- NOTE | 2018-10-08 09:32 | P.PN ---
Subjective Patient is seen in follow-up for acute kidney injury on chronic kidney disease. Patient has chronic kidney disease stage IV with baseline creatinine in the range of 2.1-2.3. GFR is at baseline. Patient is maintained on torsemide 40 mg daily. She has ejection fraction of less than 20%. No vomiting or diarrhea. Oral intake is fair. No active complaints at this time. Working with physical therapy. Vital signs are stable. General: The patient appeared well nourished and normally developed. HEENT: Head exam is unremarkable. Neck is without jugular venous distension. LUNGS: Lungs are clear to auscultation and percussion. Breath sounds decreased. HEART: Rate and Rhythm are regular. First and second heart sounds normal. No murmurs, rubs or gallops. ABDOMEN: Abdominal exam reveals normal bowel sounds. Non-tender and non- distended. No evidence of peritonitis. EXTREMITITES: No clubbing, cyanosis, or edema. Objective - Vital Signs Vital signs: Vital Signs Temp 98.6 F 10/08/18 04:00 Pulse 80 10/08/18 07:58 Resp 17 10/08/18 04:00 BP 123/62 10/08/18 04:00 Pulse Ox 95 10/08/18 04:00 Intake & Output 10/07/18 10/08/18 10/08/18 18:59 06:59 18:59 Intake Total 460 120 Balance 460 120 Weight 54 kg Intake: Oral 460 120 Other: Voiding Method Diaper Diaper Incontinent # Voids 3 1 # Bowel Movements 1 - Labs CBC & Chem 7: 10/08/18 05:30 10/08/18 05:30 Labs: Abnormal Lab Results - Last 24 Hours (Table) 10/08/18 10/08/18 Range/Units 05:30 05:30 MCHC 30.4 L (31.0-37.0) g/dL RDW 15.9 H (11.5-15.5) % Lymphocytes # 0.9 L (1.0-4.8) k/uL BUN 53 H (7-17) mg/dL Creatinine 1.99 H (0.52-1.04) mg/dL Glucose 104 H (74-99) mg/dL Microbiology - Last 24 Hours (Table) 10/03/18 08:05 Blood Culture - Preliminary Blood No Growth after 96 hours Assessment and Plan Plan: Assessment: 1. Chronic kidney disease stage IV secondary to nephrosclerosis and cardiorenal syndrome. Baseline creatinine 2.1-2.3. Currently at baseline. 2. Systolic CHF with ejection fraction of less than 20%. 3. Atrial fibrillation. Maintain on Coreg. Rate controlled. 4. Chronic hypotension related to underlying cardiac status. Plan: Maintain torsemide 40 mg daily. Encouraged oral intake. Avoid nephrotoxins. Stable for discharge from nephrology standpoint. Follow up outpatient in the next 2 weeks.
[2018-10-08] MEDS: AMIODARONE 200 MG TAB PO SCH ×2 (10:26→20:06)
[2018-10-08] MEDS: ASPIRIN 81 MG PO SCH (10:26)
[2018-10-08] MEDS: TORSEMIDE 20 MG TAB PO SCH (10:26)
[2018-10-08] MEDS: CLOPIDOGREL 75 MG TAB PO SCH (10:27)
[2018-10-08] MEDS: CEFEPIME 1 GM in SODIUM CHLORIDE 0.9% 50 ML IVPB SCH (16:47)
[2018-10-09] MEDS: CARVEDILOL 6.25 MG TAB PO SCH ×2 (05:59→16:20)
[2018-10-09 06:58] LABS: Calcium 8.7 mg/dL (8.4-10.2)
[2018-10-09] MEDS: ASPIRIN 81 MG PO SCH (09:39)
[2018-10-09] MEDS: TORSEMIDE 20 MG TAB PO SCH (09:39)
[2018-10-09] MEDS: CLOPIDOGREL 75 MG TAB PO SCH (09:39)
[2018-10-09] MEDS: AMIODARONE 200 MG TAB PO SCH ×2 (09:39→20:30)
--- NOTE | 2018-10-09 09:47 | P.PN ---
Subjective Patient is seen in follow-up for acute kidney injury on chronic kidney disease. Patient has chronic kidney disease stage IV with baseline creatinine in the range of 2.1-2.3. GFR is at baseline. Patient is maintained on torsemide 40 mg daily. She has ejection fraction of less than 20%. No vomiting or diarrhea. Oral intake is fair. No active complaints at this time. Vital signs are stable. General: The patient appeared well nourished and normally developed. HEENT: Head exam is unremarkable. Neck is without jugular venous distension. LUNGS: Lungs are clear to auscultation and percussion. Breath sounds decreased. HEART: Rate and Rhythm are regular. First and second heart sounds normal. No murmurs, rubs or gallops. ABDOMEN: Abdominal exam reveals normal bowel sounds. Non-tender and non- distended. No evidence of peritonitis. EXTREMITITES: No clubbing, cyanosis, or edema. Objective - Vital Signs Vital signs: Vital Signs Temp 98.3 F 10/09/18 04:00 Pulse 70 10/09/18 04:00 Resp 18 10/09/18 04:00 BP 116/71 10/09/18 04:00 Pulse Ox 96 10/09/18 04:00 Intake & Output 10/08/18 10/09/18 10/09/18 18:59 06:59 18:59 Intake Total 340 480 360 Balance 340 480 360 Weight 50.5 kg Intake: Oral 340 480 360 Other: Voiding Method Diaper Diaper Incontinent # Voids 3 1 2 # Bowel Movements 1 - Labs CBC & Chem 7: 10/08/18 05:30 10/09/18 05:33 Labs: Abnormal Lab Results - Last 24 Hours (Table) 10/09/18 Range/Units 05:33 BUN 51 H (7-17) mg/dL Creatinine 2.00 H (0.52-1.04) mg/dL Glucose 103 H (74-99) mg/dL Microbiology - Last 24 Hours (Table) 10/03/18 08:05 Blood Culture - Preliminary Blood No Growth after 120 hours Assessment and Plan Plan: Assessment: 1. Chronic kidney disease stage IV secondary to nephrosclerosis and cardiorenal syndrome. Baseline creatinine 2.1-2.3. Currently at baseline. 2. Systolic CHF with ejection fraction of less than 20%. 3. Atrial fibrillation. Maintain on Coreg. Rate controlled. 4. Chronic hypotension related to underlying cardiac status. Plan: Maintain torsemide 40 mg daily. Encouraged oral intake. Avoid nephrotoxins. Stable for discharge from nephrology standpoint. Follow up outpatient in the next 2 weeks.
--- NOTE | 2018-10-09 15:07 | PN ---
PROGRESS NOTE DATE OF SERVICE: 10/08/2018. CHIEF COMPLAINT: Chronic congestive heart failure. HISTORY OF PRESENT ILLNESS: This lady is not doing well. She cannot regain significant strength. She continues to be in congestive heart failure, as well as chronic renal failure. Discharge plan will be come a difficult one. We will have to consider talking to her about end of Life issues, palliative care or hospice care. PHYSICAL EXAM: There are scattered rales throughout the lung nathan. Cardiac exam is unchanged. Abdomen is soft. IMPRESSION: 1. Acute and chronic congestive heart failure. 2. Alcoholic cardiomyopathy. 3. Alcoholism. 4. Renal failure. PLAN: Continue supportive care and continue to consider best discharge plan for this critically ill patient. MMODL / IJN: [id number] /
--- NOTE | 2018-10-09 16:34 | PN ---
PROGRESS NOTE DATE OF SERVICE: 10/09/2018. CHIEF COMPLAINT: Chronic congestive heart failure. HISTORY OF PRESENT ILLNESS: This lady remains relatively stable and is going to require long-term care. She may become a hospice candidate. PHYSICAL EXAM: Vital signs are unchanged. Breath sounds are heard on both sides with occasional rales. Cardiac exam demonstrates an S3 and S4. The abdomen is flat. IMPRESSION: 1. Acute on chronic congestive heart failure. 2. Renal failure. 3. Chronic obstructive pulmonary disease. 4. Hepatitis C. PLAN: Palliative care, hospice care will be discussed. MMODL / IJN: [id number] /
[2018-10-09] MEDS: CEFEPIME 1 GM in SODIUM CHLORIDE 0.9% 50 ML IVPB SCH (20:34)
[2018-10-10] MEDS: AMIODARONE 200 MG TAB PO SCH ×2 (07:56→20:25)
[2018-10-10] MEDS: CARVEDILOL 6.25 MG TAB PO SCH ×2 (07:56→16:51)
[2018-10-10] MEDS: ASPIRIN 81 MG PO SCH (07:56)
[2018-10-10] MEDS: CLOPIDOGREL 75 MG TAB PO SCH (07:56)
[2018-10-10] MEDS: TORSEMIDE 20 MG TAB PO SCH (07:56)
--- NOTE | 2018-10-10 11:17 | P.PN ---
Subjective Patient is seen in follow-up for acute kidney injury on chronic kidney disease. Patient has chronic kidney disease stage IV with baseline creatinine in the range of 2.1-2.3. GFR is at baseline. Patient is maintained on torsemide 40 mg daily. She has ejection fraction of less than 20%. No vomiting or diarrhea. Oral intake is fair. No active complaints at this time. Anticipate discharge soon. Vital signs are stable. General: The patient appeared well nourished and normally developed. HEENT: Head exam is unremarkable. Neck is without jugular venous distension. LUNGS: Lungs are clear to auscultation and percussion. Breath sounds decreased. HEART: Rate and Rhythm are regular. First and second heart sounds normal. No murmurs, rubs or gallops. ABDOMEN: Abdominal exam reveals normal bowel sounds. Non-tender and non- distended. No evidence of peritonitis. EXTREMITITES: No clubbing, cyanosis, or edema. Objective - Vital Signs Vital signs: Vital Signs Temp 98.2 F 10/10/18 06:00 Pulse 61 10/10/18 06:00 Resp 20 10/10/18 06:00 BP 103/65 10/10/18 06:00 Pulse Ox 96 10/10/18 06:00 Intake & Output 10/09/18 10/10/18 10/10/18 18:59 06:59 18:59 Intake Total 680 200 Output Total 2 Balance 680 198 Weight 50.5 kg Intake: Oral 680 200 Output: Urine/Stool Mix 2 Other: Voiding Method Diaper Diaper Diaper Incontinent Incontinent Incontinent # Voids 1 1 - Labs CBC & Chem 7: 10/08/18 05:30 10/09/18 05:33 Labs: Microbiology - Last 24 Hours (Table) 10/03/18 08:05 Blood Culture - Final Blood No Growth after 144 hours Assessment and Plan Plan: Assessment: 1. Chronic kidney disease stage IV secondary to nephrosclerosis and cardiorenal syndrome. Baseline creatinine 2.1-2.3. Currently at baseline. 2. Systolic CHF with ejection fraction of less than 20%. 3. Atrial fibrillation. Maintain on Coreg. Rate controlled. 4. Chronic hypotension related to underlying cardiac status. Plan: Maintain torsemide 40 mg daily. Encouraged oral intake. Avoid nephrotoxins. Stable for discharge from nephrology standpoint. Follow up outpatient in the next 2 weeks.
--- NOTE | 2018-10-10 16:45 | PN ---
PROGRESS NOTE DATE OF SERVICE: 10/10/2018 CHIEF COMPLAINT: Chronic congestive heart failure with acute component. HISTORY OF PRESENT ILLNESS: This lady seems to be doing a little bit better. She looks better and states she feels better. There is no edema or anasarca and she seems more alert. PHYSICAL EXAM: Chest is clear. Cardiac exam is unchanged with atrial fibrillation. The abdomen is flat, soft. Extremities are normal. IMPRESSION: 1. Acute on chronic congestive heart failure. 2. Recent non ST elevation myocardial infarction. 3. Alcoholic cardiomyopathy. 4. Cirrhosis. 5. Chronic obstructive pulmonary disease. 6. Hepatitis C. 7. Renal failure. PLAN: If she remains fairly stable, she could be discharged to a shelter and this was discussed with patient. KIM / MARTHAN: [id number] /
[2018-10-10] MEDS: CEFEPIME 1 GM in SODIUM CHLORIDE 0.9% 50 ML IVPB SCH (20:25)
[2018-10-10] MEDS: IPRATROPIUM-ALBUTEROL 3 ML NEB INHALATION PRN (20:45)
[2018-10-10] MEDS ORDERED: FUROSEMIDE 10 MG/ML 10 ML VIAL IV STA (21:39)
[2018-10-10] MEDS ORDERED: FUROSEMIDE 10 MG/ML 4 ML VIAL IV STA (22:19)
[2018-10-11 06:30] VITALS: RESP 20
[2018-10-11] MEDS: IPRATROPIUM-ALBUTEROL 3 ML NEB INHALATION PRN (08:38)
[2018-10-11] MEDS: ASPIRIN 81 MG PO SCH (09:16)
[2018-10-11] MEDS: AMIODARONE 200 MG TAB PO SCH (09:16)
[2018-10-11] MEDS: CARVEDILOL 6.25 MG TAB PO SCH (09:16)
[2018-10-11] MEDS: CLOPIDOGREL 75 MG TAB PO SCH (09:16)
[2018-10-11] MEDS: TORSEMIDE 20 MG TAB PO SCH (09:17)
--- NOTE | 2018-10-11 10:46 | P.PN ---
Subjective Patient is seen in follow-up for acute kidney injury on chronic kidney disease. Patient has chronic kidney disease stage IV with baseline creatinine in the range of 2.1-2.3. GFR is at baseline. Patient is maintained on torsemide 40 mg daily. She has ejection fraction of less than 20%. No vomiting or diarrhea. Oral intake is fair. No active complaints at this time. Anticipate discharge soon. Vital signs are stable. General: The patient appeared well nourished and normally developed. HEENT: Head exam is unremarkable. Neck is without jugular venous distension. LUNGS: Lungs are clear to auscultation and percussion. Breath sounds decreased. HEART: Rate and Rhythm are regular. First and second heart sounds normal. No murmurs, rubs or gallops. ABDOMEN: Abdominal exam reveals normal bowel sounds. Non-tender and non- distended. No evidence of peritonitis. EXTREMITITES: No clubbing, cyanosis, or edema. Objective - Vital Signs Vital signs: Vital Signs Temp 98.4 F 10/11/18 06:29 Pulse 78 10/11/18 09:21 Resp 20 10/11/18 09:21 BP 113/71 10/11/18 06:29 Pulse Ox 95 10/11/18 06:29 Intake & Output 10/10/18 10/11/18 10/11/18 18:59 06:59 18:59 Weight 50.5 kg Other: Voiding Method Diaper Diaper Diaper Incontinent Incontinent Incontinent # Voids 2 4 # Bowel Movements 2 1 - Labs CBC & Chem 7: 10/08/18 05:30 10/09/18 05:33 Assessment and Plan Plan: Assessment: 1. Chronic kidney disease stage IV secondary to nephrosclerosis and cardiorenal syndrome. Baseline creatinine 2.1-2.3. Currently at baseline. 2. Systolic CHF with ejection fraction of less than 20%. 3. Atrial fibrillation. Maintain on Coreg. Rate controlled. 4. Chronic hypotension related to underlying cardiac status. Blood pressure stable. Plan: Maintain torsemide 40 mg daily. Encouraged oral intake. Avoid nephrotoxins. Stable for discharge from nephrology standpoint. Follow up outpatient in the next 2 weeks.
[2018-10-11 14:07] VITALS: BMI 17.9
[2018-10-11 15:12] VITALS: BP 97/66; PULSE 68; TEMP 97
--- NOTE | 2018-10-11 16:16 | PN ---
PROGRESS NOTE CHIEF COMPLAINT: Acute on chronic congestive heart failure. HISTORY OF PRESENT ILLNESS AND PHYSICAL EXAM: Details of this lady's history and physical can be found in the initial workup. LABORATORY STUDIES: While she was in the hospital she had laboratory studies, details of which can be found in the laboratory section of her chart. COURSE IN HOSPITAL: After admission she was placed on bedrest, started on intravenous fluids and attempts were instituted to manage her congestive heart failure with great difficulty. She also had renal compromise as well as COPD. She has a profound alcoholic congestive cardiomyopathy. She slowly seemed to be improving and reached the point that it was felt she could be discharged, but she was not strong enough to go home and she will go to [facility]. FINAL DIAGNOSES: 1. Acute congestive heart failure. 2. Chronic congestive heart failure. 3. 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 4. Chronic obstructive pulmonary disease. 5. Renal failure. 6. Hepatitis C. OPERATIONS: None. CONSULTATIONS: Pulmonology. She is improved MMODL / IJN: [id number] /
== END 2018-10-11 18:10 | DRG 280 ==
LOC: EC 16:53 → 3SCARD 22:17 → 4MS4W 10-09 10:25
PROVIDERS: ADMIT Family Medicine; ATTEND Family Medicine
DX: I13.0 Hypertensive heart and chronic kidney disease with heart failure and stage 1 through stage 4 chronic kidney disease, or unspecified chronic kidney disease (principal); I50.43 Acute on chronic combined systolic (congestive) and diastolic (congestive) heart failure; I21.4 Non-ST elevation (NSTEMI) myocardial infarction; N17.9 Acute kidney failure, unspecified; N18.4 Chronic kidney disease, stage 4 (severe); L03.116 Cellulitis of left lower limb; L03.115 Cellulitis of right lower limb; I47.1 Supraventricular tachycardia; R18.8 Other ascites; I48.92 Unspecified atrial flutter; I95.89 Other hypotension; I27.20 Pulmonary hypertension, unspecified; D57.1 Sickle-cell disease without crisis; I42.6 Alcoholic cardiomyopathy; I48.91 Unspecified atrial fibrillation; J44.9 Chronic obstructive pulmonary disease, unspecified; K74.60 Unspecified cirrhosis of liver; I73.9 Peripheral vascular disease, unspecified; B19.20 Unspecified viral hepatitis C without hepatic coma; I49.3 Ventricular premature depolarization; L98.9 Disorder of the skin and subcutaneous tissue, unspecified; M19.90 Unspecified osteoarthritis, unspecified site; F10.21 Alcohol dependence, in remission; Z79.82 Long term (current) use of aspirin; Z79.02 Long term (current) use of antithrombotics/antiplatelets; Z79.899 Other long term (current) drug therapy; Z87.891 Personal history of nicotine dependence; Z87.19 Personal history of other diseases of the digestive system; Z88.0 Allergy status to penicillin; Z91.040 Latex allergy status; Z82.49 Family history of ischemic heart disease and other diseases of the circulatory system
CPT/HCPCS: 36415; 71046; 74176; 80048; 80053; 80202; 81001; 83605; 83735; 83880; 84484; 85025; 85610; 85730; 87040; 93005; 93970; 94640; 96365; 96366; 96367; 96372; 96375; 99285